=== PATIENT | female | born 1975 | race Caucasian/White ===

== ENCOUNTER 2018-10-05 07:12 | Inpatient (IN) | payer OTHER ==
[2018-10-05 08:24] LABS: Hemoglobin 16.1 g/dL (12.0-16.0); Mean Corpuscular HGB CONC 33.4 g/dL (32.0-36.0); Mean Corpuscular Hemoglobin 30.8 pg (27.0-31.0); Mean Corpuscular Volume 92.1 fL (78.0-98.0); Mean Platelet Volume 8.2 fL (7.4-10.4); Platelet Count 340 thou/uL (130-400); RBC Distribution Width 11.4 % (11.5-14.5); Red Blood Cell (RBC) Count 5.24 mill/uL (4.20-5.40); White Blood Cell (WBC) Count 20.6 thou/uL (4.8-10.8)
[2018-10-05 08:29] LABS: Bilirubin Negative (Negative); Blood, Urine Moderate (Negative); Clarity TURBID (Clear); Glucose, Urine (Dipstick) Negative (Negative); Leukocyte Large (Negative); Nitrite Positive (Negative); Protein, Urine (Dipstick) 30 mg/dL (Neg-Trace); Specific Gravity, Urine 1.012 (1.002-1.036); Urobilinogen 0.2 mg/dL (0.2-1.0); pH, Urine 7.5 (5.0-9.0)
[2018-10-05 08:30] LABS: Bacteria/HPF 4+ HPF (None Seen); RBC/HPF 21-50 HPF (0-3); Squamous Epithelial 0-3 HPF (0-3)
[2018-10-05 08:37] LABS: Pathc Cast-AUWi Flag 3.19 (0-2.49)
[2018-10-05 08:40] LABS: Band 12 % (5-11); Lymphocytes 5 % (21-51); MDiff Complete? YES; Monocytes 1 % (0-10); Neutrophil 79 % (42-75); RBC Morphology Normal; Reactive Lymphocytes 2 % (0-10)
[2018-10-05] MEDS ORDERED: Morphine 4 MG/ML VIAL ONE ×2 (08:42→12:16)
[2018-10-05] MEDS ORDERED: Ondansetron PF 4 MG/2 ML Vial ONE ×3 (08:42→16:39)
[2018-10-05 08:46] LABS: Hyaline Casts/LPF 0-3 HYALINE CAST LPF (0-3 Hyaline); Manual Microscopic Reviewed? No Path Casts Seen
[2018-10-05 08:50] LABS: ALT (SGPT) 23 U/L (8-55); AST (SGOT) 20 U/L (5-34); Albumin 4.7 g/dL (3.5-5.0); Alkaline Phosphatase 44 U/L (40-150); Anion Gap 13 mmol/L (10-20); BUN (Urea Nitrogen) 17 mg/dL (7.0-18.7); Bilirubin, Total 0.7 mg/dL (0.2-1.2); Calc. Creatinine Clearance 0 mL/min (70-130); Calcium 10.1 mg/dL (7.8-10.44); Carbon Dioxide 25 mmol/L (22-29); Chloride 105 mmol/L (98-107); Estimated GFR-MDRD 87; Globulin 3.6 g/dL (2.4-3.5); Glucose 132 mg/dL (70-105); Lipase 22 U/L (8-78); Potassium 3.8 mmol/L (3.5-5.1); Protein, Total 8.3 g/dL (6.0-8.3); Sodium 139 mmol/L (136-145)
--- NOTE | 2018-10-05 10:09 | CT ---
CT ABDOMEN WITH CONTRAST CT PELVIS WITH CONTRAST: DATE: 10/05/2018 TIME: 9:25 a.m. HISTORY: A 43-year-old female with abdominal pain, nausea, and emesis. The high-grade small bowel obstruction was discussed by Dr. Cordova, by telephone, with Dr. Montgomery of the emergency department at 9:43 a.m. on 10/05/2018. COMPARISON: None available. TECHNIQUE: IV injection of iodinated contrast media: Isovue-370 100 mL. Oral contrast media: Isovue p.o. FINDINGS: The lung bases are clear. No pneumoperitoneum or ascites. Normal liver, abdominal aorta, pancreas, and adrenals. Surgical absence of the uterus, urinary bladder, and rectum (and presumably ovaries). There is a left lower quadrant ostomy at the anterolateral abdominal wall, into which the descending colon enters. The adjacent portion of the descending colon is collapsed. There is no significant di lation of the rest of the colon. However, a loop of small intestine also herniates into this ostomy. The afferent limb and all small bowel loops proximal to it are severely dilated, typical caliber of 4 cm. The efferent limb of this herniated small bowel loop, at the colostomy site, is collapsed, as are all the small bowel loops dis mona to it. Due to the absence of intrapelvic structures, the cecum has herniated deep into the pelvic cavity. T he appendix is not identified with certainty. There are several surgical clips around the left inter nal/external iliac vessel bifurcation. No destructive osseous lesion. There are multiple moderate-sized and large parenchymal defects throughout the right renal upper, mid , and lower poles, representing multiple scars from previous insults. There is mild compensatory hyp ertrophy of the contralateral left kidney. The left renal parenchyma is intact. The bilateral renal collecting systems are mildly dilated. There is moderate dilation of the right ureter. No signific ant dilation of the left ureter. The ureters are presumably anastomosed to an ileal loop pouch, conn ected to a contralateral right-sided ostomy. IMPRESSION: 1. High-grade small bowel obstruction. This is due to obstruction of herniation of a loop of small intestine into the left lower quadrant colostomy site. 2. Status post total pelvic exenteration. 3. Status post urinary diversion surgery, with an ileal pouch emptying into a right lower quadrant o stomy. 4. Severe scarring and severe parenchymal volume loss of the right kidney due to multiple prior insu lts (such as prior infarctions and/or prior infections). CODE CR JN R POS: TIRSO
[2018-10-05] MEDS ORDERED: cefTRIAXone\\ROCEPHIN 1 GM VIAL ONE (10:13)
[2018-10-05] MEDS ORDERED: Lidocaine 2% Jelly 5 ML TUBE ONE (10:13)
[2018-10-05] MEDS ORDERED: Benzocaine 20% Spray 60 ML CAN ONE (10:13)
[2018-10-05] MEDS ORDERED: Iopamidol 370 76% 50 ML VIAL FS ONE (10:38)
[2018-10-05] MEDS ORDERED: ISOVUE-370 76%-LOCM 1 ML ONE (10:38)
--- NOTE | 2018-10-05 11:04 | HP ---
CHIEF COMPLAINT: Obstruction. 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 She has urostomy and an end colostomy from that. She has undergone a few additional procedures for abdominal wall reconstruction as well as vagina reconstruction. Since then, she has had right-sided muscle flap down for vaginal reconstruction. She now presents with pain, less ostomy output overnight associated with emesis. She is found on CT to have what looks like a strangulated hernia at her colostomy site. MEDICAL HISTORY: Otherwise, she denies. SURGICAL HISTORY: As above. Breast implants. MEDICATIONS: Medicines, none. ALLERGIES: NO KNOWN DRUG ALLERGIES. SOCIAL HISTORY: She is currently incarcerated. No alcohol, smoking, or other drugs. REVIEW OF SYSTEMS: Otherwise negative as described above. PHYSICAL EXAMINATION: VITAL SIGNS: She is afebrile. Her vital signs are stable. CHEST: Clear. HEART: Regular rate and rhythm. ABDOMEN: Soft. It is diffuse, mildly tender, more tender in the area of the colostomy site. No stool in her bag. She has clear urine in her ostomy. ASSESSMENT: Strangulated parastomal hernia. PLAN: To operating room for repair. She has been told she had this, but it was non-obstructing in the past. This was a prior admission in [place] for bowel obstruction. She understands risks and benefits of surgery including bleeding, infection, scarring, enterocutaneous fistula, need for further operation, and potential for hernia recurrence. Job ID: [id number]
[2018-10-05] MEDS ORDERED: Midazolam HCl 2 mg/2 ml Vial ONE (11:59)
[2018-10-05] MEDS ORDERED: Bupivacaine/Epinephrine 0.25% 30 ML VIAL ONE (12:05)
[2018-10-05] MEDS ORDERED: Sodium Chloride 0.9% 10 ML ONE ×2 (12:08→12:09)
[2018-10-05] MEDS ORDERED: Fentanyl 250 MCG/5 ML VIAL ONE (12:16)
[2018-10-05] MEDS ORDERED: Fentanyl 100 MCG/2 ML VIAL ONE ×4 (14:30→15:54)
[2018-10-05] MEDS ORDERED: Promethazine HCl 25 MG/ML VIAL IM PRN ×3 (15:22→16:15)
[2018-10-05] MEDS ORDERED: diphenhydrAMINE 50 MG/ML VIAL IVP PRN (15:22)
[2018-10-05] MEDS ORDERED: Ondansetron PF 4 MG/2 ML Vial IVP PRN ×2 (15:22→16:15)
[2018-10-05] MEDS ORDERED: Promethazine HCl 25 MG/ML VIAL SLOW IVP PRN (15:22)
[2018-10-05] MEDS ORDERED: diphenhydrAMINE 50 MG/ML VIAL IM PRN (15:22)
[2018-10-05] MEDS ORDERED: Naloxone HCl 0.4 mg/ml Vial IV PRN (15:22)
[2018-10-05] MEDS ORDERED: Ondansetron HCl/PF 4 MG/2 ML Vial IVP PRN (15:22)
[2018-10-05] MEDS ORDERED: diphenhydrAMINE 25 MG CAP PO PRN (15:22)
[2018-10-05] MEDS ORDERED: Communication Order-Pharmacy FS SCH (15:30)
[2018-10-05] MEDS ORDERED: hydrALAZINE 20 MG/ML VIAL SLOW IVP PRN (16:15)
[2018-10-05] MEDS ORDERED: Glycopyrrolate 0.2 MG/ML 5 ML SYRINGE ONE (16:39)
[2018-10-05] MEDS ORDERED: Succinylcholine Chloride 20 MG/ML 10 ml SYRINGE FS ONE (16:39)
[2018-10-05] MEDS ORDERED: PROPOFOL 200 MG/20 ML VIAL ONE (16:39)
[2018-10-05] MEDS ORDERED: Lidocaine 1% PF 5 ML VIAL ONE (16:39)
[2018-10-05] MEDS ORDERED: Ketorolac Tromethamine 30 MG/ML VIAL ONE (16:39)
[2018-10-05] MEDS ORDERED: Dexamethasone 20 MG/5 ML VIAL ONE (16:39)
[2018-10-05] MEDS ORDERED: Acetaminophen 1,000 MG in Premix Bag 1 BAG IVPB SCH (18:00)
[2018-10-05] MEDS ORDERED: Ketorolac Tromethamine 30 MG/ML VIAL IVP SCH (18:00)
[2018-10-05] MEDS: D5 1/2 NS w/20 mEq KCL 1,000 ML IV SCH (18:03)
--- NOTE | 2018-10-05 18:12 | OP ---
DATE OF PROCEDURE: 10/05/2018 PREOPERATIVE DIAGNOSIS: Strangulated parastomal hernia. POSTOPERATIVE DIAGNOSIS: Strangulated parastomal hernia. PROCEDURES PERFORMED: 1. Exploratory laparotomy. 2. Parastomal hernia repair by re-doing the colostomy. 3. Small-bowel resection anastomosis. 4. Extensive lysis of adhesions. ANESTHESIA: General. ESTIMATED BLOOD LOSS: 200 mL. COMPLICATIONS: None. FINDINGS: Significant intraabdominal adhesions with ischemic changes to the intestine in the hernia. DESCRIPTION OF PROCEDURE: The patient was taken to the operating room and laid supine on the operating room table after general anesthetic was obtained. Cisneros was placed in the urostomy and balloon inflated. The Cisneros was laid off the side of the patient. Colostomy and urostomy bags are removed. The abdomen is prepped and draped in a sterile fashion. Tegaderms were placed over each ostomy site. Left subcostal 5 mm Optiview trocar placed without injury and high-flow pneumoperitoneum was obtained. There were just too many intraabdominal adhesions to proceed laparoscopic, decision was made open, midline incision was made very carefully avoiding intraabdominal structures. Multiple small bowel and colon adhesions were taken down. The small bowel can be seen going down toward the parastomal hernia and with significant dilation the area of the parastomal hernia the small intestine had ischemic changes. The colon is decompressed. The small intestine is fused to the hernia sac in the hernia way up towards the skin and taking this down, enterotomy is made. OLVIN-75 stapler is fired proximally and distally across the area of intestine going up into the hernia and dissecting the small bowel out of the parastomal hernia. Because the small bowel was fused to the side of the colon, a small colotomy was made, so the decision is made to redo the whole colostomy. The colostomy mucosa is ellipsed out from the skin and the colostomy is all taken back down into the abdominal cavity. The area with the hole is stapled off and removed. The splenic flexure then had to be mobilized in order to facilitate no tension on the new colostomy. The end colostomy is able to brought up through the muscle under no tension, held in place using a Pyrites. A [id number] anastomosis is performed using the two ends of small intestine using OLVIN-75 stapler. The common enterotomy was closed using stapler. A crotch stitch in the staple line was oversewn using silk sutures. The mesenteric defect was closed using silk sutures. There was no bleeding in the abdomen. All instrument counts, needle counts, and lap counts were correct. PDS was used to close the fascial defect from the top and the bottom, tied in the middle. Subcutaneous tissues were irrigated and closed using skin clips. Telfa hermelinda were placed in between some of the frannie secondary to the contaminated nature of the procedure. The colostomy is then matured in the usual fashion using 3-0 Vicryl. Colostomy and urostomy devices were placed. The patient was then returned to Recovery in stable condition. All instrument counts, needle counts, and lap counts are correct. Job ID: [id number]
[2018-10-05 18:34] VITALS: BMI 27.8
[2018-10-05] MEDS: Famotidine/PF 20 mg/2ml Vial SLOW IVP SCH (19:33)
[2018-10-05] MEDS: Acetaminophen 1,000 MG in Premix Bag 1 BAG IVPB SCH (19:33)
[2018-10-05] MEDS: Famotidine 20 MG TAB PO SCH (19:34)
[2018-10-05] MEDS: cefOXitin Sodium/Dextrose,Iso 2 GM in Premix Bag 1 BAG IVPB SCH (21:06)
[2018-10-06] MEDS: Acetaminophen 1,000 MG in Premix Bag 1 BAG IVPB SCH ×3 (02:00→15:06)
[2018-10-06] MEDS: D5 1/2 NS w/20 mEq KCL 1,000 ML IV SCH ×3 (02:00→15:05)
[2018-10-06] MEDS: cefOXitin Sodium/Dextrose,Iso 2 GM in Premix Bag 1 BAG IVPB SCH (05:17)
[2018-10-06 07:01] LABS: Anion Gap 10 mmol/L (10-20); BUN (Urea Nitrogen) 14 mg/dL (7.0-18.7); Calc. Creatinine Clearance 66 mL/min (70-130); Calcium 7.5 mg/dL (7.8-10.44); Carbon Dioxide 23 mmol/L (22-29); Chloride 108 mmol/L (98-107); Estimated GFR-MDRD 47; Glucose 156 mg/dL (70-105); Potassium 4.3 mmol/L (3.5-5.1); Sodium 137 mmol/L (136-145)
[2018-10-06] MEDS: Famotidine/PF 20 mg/2ml Vial SLOW IVP SCH ×2 (08:21→21:01)
[2018-10-06] MEDS: Famotidine 20 MG TAB PO SCH ×2 (08:22→21:00)
[2018-10-06 08:24] LABS: #Lymphocytes 0.9 thou/uL (1.20-3.40); #Monocytes 0.7 thou/uL (0.11-0.59); #Neutrophils 11.1 thou/uL (1.40-6.50); %Basophils 0.1 % (0.0-1.0); %Eosinophils 0.2 % (0.0-10.0); %Lymphocytes 7.3 % (21.0-51.0); %Monocytes 5.5 % (0.0-10.0); Band 24 % (5-11); Hemoglobin 12.3 g/dL (12.0-16.0); Lymphocytes 5 % (21-51); MDiff Complete? YES; Mean Corpuscular HGB CONC 32.1 g/dL (32.0-36.0); Mean Corpuscular Hemoglobin 30.6 pg (27.0-31.0); Mean Corpuscular Volume 95.2 fL (78.0-98.0); Mean Platelet Volume 8.4 fL (7.4-10.4); Monocytes 2 % (0-10); Neutrophil 65 % (42-75); Platelet Count 233 thou/uL (130-400); RBC Distribution Width 11.6 % (11.5-14.5); Reactive Lymphocytes 4 % (0-10); White Blood Cell (WBC) Count 12.8 thou/uL (4.8-10.8)
--- NOTE | 2018-10-06 10:15 | PRG ---
DATE OF SERVICE: 10/06/2018 SUBJECTIVE: Postop day #1, revision colostomy and parastomal hernia repair. Ms. Thornton's pain is moderate to significant. She is on a [employer]. She denies nausea. She has not ambulated yet. She is afebrile. Vital signs are stable. Her abdomen is soft. Her midline dressings are intact. Her colostomy mucosa is pink. She has good urine in her urostomy bag. White blood cell count is 12, hemoglobin is 12. Sodium 137, creatinine 1.24. ASSESSMENT: Postop day #1 revision colostomy and parastomal hernia repair necessitating small-bowel resection. PLAN: Discontinue NG. Continue just ice chips today. Hopefully, start advancing diet tomorrow. Encouraged ambulation. Job ID: [id number]
[2018-10-06] MEDS: fentaNYL Citrate/PF 2,000 MCG in Sodium Chloride 0.9% 60 ML IV PRN (17:15)
[2018-10-07] MEDS: Ketorolac Tromethamine 30 MG/ML VIAL IVP PRN (00:25)
[2018-10-07] MEDS: D5 1/2 NS w/20 mEq KCL 1,000 ML IV SCH ×3 (02:15→11:14)
[2018-10-07 06:07] LABS: #Eosinphils 0.4 thou/uL (0.0-0.7); #Monocytes 0.8 thou/uL (0.11-0.59); #Neutrophils 10.9 thou/uL (1.40-6.50); %Basophils 0.3 % (0.0-1.0); %Eosinophils 2.8 % (0.0-10.0); %Lymphocytes 7.4 % (21.0-51.0); %Neutrophils 83.5 % (42.0-75.0); Hemoglobin 10.9 g/dL (12.0-16.0); Mean Corpuscular HGB CONC 32.9 g/dL (32.0-36.0); Mean Corpuscular Hemoglobin 31.7 pg (27.0-31.0); Mean Corpuscular Volume 96.4 fL (78.0-98.0); Mean Platelet Volume 8.4 fL (7.4-10.4); Platelet Count 203 thou/uL (130-400); RBC Distribution Width 11.5 % (11.5-14.5); Red Blood Cell (RBC) Count 3.44 mill/uL (4.20-5.40); White Blood Cell (WBC) Count 13.1 thou/uL (4.8-10.8)
[2018-10-07 06:31] LABS: Anion Gap 7 mmol/L (10-20); BUN (Urea Nitrogen) 11 mg/dL (7.0-18.7); Calc. Creatinine Clearance 119 mL/min (70-130); Calcium 7.6 mg/dL (7.8-10.44); Carbon Dioxide 23 mmol/L (22-29); Chloride 110 mmol/L (98-107); Estimated GFR-MDRD Greater than 90; Glucose 116 mg/dL (70-105); Potassium 4.2 mmol/L (3.5-5.1)
[2018-10-07 06:44] LABS: Sodium 136 mmol/L (136-145)
[2018-10-07] MEDS: Famotidine/PF 20 mg/2ml Vial SLOW IVP SCH ×2 (08:25→20:24)
[2018-10-07] MEDS: fentaNYL Citrate/PF 2,000 MCG in Sodium Chloride 0.9% 60 ML IV PRN ×2 (08:28→17:19)
[2018-10-07] MEDS: Famotidine 20 MG TAB PO SCH ×2 (09:31→20:24)
--- NOTE | 2018-10-07 13:27 | PRG ---
DATE OF SERVICE: 10/07/2018 SUBJECTIVE: Ms. Thornton is doing well. She denies nausea. No bowel function yet. PHYSICAL EXAMINATION: VITAL SIGNS: She is afebrile. Vital signs are stable. ABDOMEN: Soft. She has occasional bowel sounds. Midline wound dressings are changed and her hermelinda are removed and sterile dressing was placed. She has clear urine. No air in her bag, although she feels some air, passing some gas. ASSESSMENT: Postoperative day 2, parastomal hernia that strangulated repair necessitating small bowel resection and revision of colostomy. PLAN: Start clear liquid diet today. Hopefully, advance over the weekend. She has a high risk for infection wound and she had significant dilation of her intestine, so I would advance her diet slowly. Dr. Mancia is covering for me this weekend. Job ID: [id number]
[2018-10-08] MEDS: D5 1/2 NS w/20 mEq KCL 1,000 ML IV SCH ×2 (00:04→07:54)
[2018-10-08 06:25] LABS: #Eosinphils 0.3 thou/uL (0.0-0.7); #Monocytes 1.2 thou/uL (0.11-0.59); #Neutrophils 10.8 thou/uL (1.40-6.50); %Basophils 0.2 % (0.0-1.0); %Eosinophils 2.3 % (0.0-10.0); %Lymphocytes 7.8 % (21.0-51.0); %Monocytes 8.8 % (0.0-10.0); %Neutrophils 80.9 % (42.0-75.0); Hemoglobin 10.4 g/dL (12.0-16.0); Mean Corpuscular HGB CONC 33.6 g/dL (32.0-36.0); Mean Corpuscular Volume 95.1 fL (78.0-98.0); Mean Platelet Volume 8.6 fL (7.4-10.4); Platelet Count 206 thou/uL (130-400); RBC Distribution Width 11.2 % (11.5-14.5); Red Blood Cell (RBC) Count 3.24 mill/uL (4.20-5.40); White Blood Cell (WBC) Count 13.4 thou/uL (4.8-10.8)
[2018-10-08] MEDS: fentaNYL Citrate/PF 2,000 MCG in Sodium Chloride 0.9% 60 ML IV PRN ×2 (06:35→18:25)
[2018-10-08 06:44] LABS: Anion Gap 10 mmol/L (10-20); BUN (Urea Nitrogen) 5 mg/dL (7.0-18.7); Calc. Creatinine Clearance 137 mL/min (70-130); Calcium 8.4 mg/dL (7.8-10.44); Carbon Dioxide 21 mmol/L (22-29); Chloride 107 mmol/L (98-107); Estimated GFR-MDRD Greater than 90; Glucose 96 mg/dL (70-105); Potassium 4.1 mmol/L (3.5-5.1); Sodium 134 mmol/L (136-145)
[2018-10-08] MEDS: Famotidine/PF 20 mg/2ml Vial SLOW IVP SCH ×2 (07:52→20:19)
[2018-10-08] MEDS: Famotidine 20 MG TAB PO SCH ×2 (07:53→20:20)
[2018-10-08] MEDS: Ketorolac Tromethamine 30 MG/ML VIAL IVP PRN (07:53)
--- NOTE | 2018-10-08 13:31 | PRG ---
DATE OF SERVICE: 10/08/2018 SUBJECTIVE: Elma Thornton is doing well today. She did have a fever to 102.2 degrees. Currently, her temperature is 98 degrees. She has been ambulating. She feels her abdomen is slightly distended. PHYSICAL EXAMINATION: VITAL SIGNS: Heart rate 101 and blood pressure 137/91. LUNGS: Clear to auscultation. CARDIAC: Regular rate and rhythm without murmur or gallop. ABDOMEN: Soft, slightly tympanitic, slightly distended. No stool in her colostomy. Urine output is good through her urostomy bag. LABORATORY DATA: This morning, her white count is 13,000, unchanged from yesterday. Hemoglobin 10.4. Basic metabolic profile unremarkable. ASSESSMENT AND PLAN: Postoperative. Continue clear liquids, do not advance. Continue IV fluids until she tolerates her diet better. Continue use of antibiotics. Encourage ambulation. Job ID: [id number]
[2018-10-08] MEDS ORDERED: Acetaminophen 500 MG TAB PO PRN (19:50)
[2018-10-08] MEDS ORDERED: Ketorolac Tromethamine 30 MG/ML VIAL IVP PRN (19:50)
[2018-10-08] MEDS: Acetaminophen 1,000 MG in Premix Bag 1 BAG IVPB PRN (20:20)
[2018-10-09] MEDS: D5 1/2 NS w/20 mEq KCL 1,000 ML IV SCH ×2 (05:23→17:36)
[2018-10-09] MEDS: fentaNYL Citrate/PF 2,000 MCG in Sodium Chloride 0.9% 60 ML IV PRN ×2 (08:41→21:16)
[2018-10-09] MEDS: Famotidine/PF 20 mg/2ml Vial SLOW IVP SCH ×2 (08:41→20:06)
[2018-10-09] MEDS: Famotidine 20 MG TAB PO SCH ×2 (10:56→20:10)
[2018-10-09] MEDS: Acetaminophen 1,000 MG in Premix Bag 1 BAG IVPB PRN (11:20)
--- NOTE | 2018-10-09 17:37 | PRG ---
DATE OF SERVICE: SUBJECTIVE: Elma Thornton is doing well today. She is complaining of some bloating, but no nausea or vomiting. She is tolerating her liquids. She has not had any flatus or stool out of her colostomy bag. OBJECTIVE: VITAL SIGNS: Temperature 98.5 degrees, pulse 89, respirations 20, and blood pressure 105/65. She has not had a fever since 7 yesterday morning. LUNGS: Clear to auscultation. CARDIAC: Regular rate and rhythm without murmur or gallop. ABDOMEN: Soft. Bowel sounds present. Mild tympany. EXTREMITIES: Unremarkable. LABORATORY DATA: No laboratories today. ASSESSMENT AND PLAN: Continue liquids. Await better bowel function. We will check her laboratories tomorrow. Her fever seemed to have resolved. Await colostomy function. Job ID: [id number]
[2018-10-09] MEDS ORDERED: Acetaminophen 1,000 MG in Premix Bag 1 BAG IVPB PRN (23:39)
[2018-10-10] MEDS: D5 1/2 NS w/20 mEq KCL 1,000 ML IV SCH (01:05)
[2018-10-10 06:09] LABS: Band 3 % (5-11); Eosinophils 6 % (0-10); Hemoglobin 10.9 g/dL (12.0-16.0); Lymphocytes 18 % (21-51); MDiff Complete? YES; Mean Corpuscular HGB CONC 33.7 g/dL (32.0-36.0); Mean Corpuscular Hemoglobin 32.2 pg (27.0-31.0); Mean Corpuscular Volume 95.5 fL (78.0-98.0); Mean Platelet Volume 7.7 fL (7.4-10.4); Monocytes 14 % (0-10); Neutrophil 59 % (42-75); Platelet Count 259 thou/uL (130-400); RBC Distribution Width 11.4 % (11.5-14.5); Red Blood Cell (RBC) Count 3.39 mill/uL (4.20-5.40); White Blood Cell (WBC) Count 9.6 thou/uL (4.8-10.8)
[2018-10-10 06:12] LABS: Anion Gap 12 mmol/L (10-20); BUN (Urea Nitrogen) 4 mg/dL (7.0-18.7); Calc. Creatinine Clearance 135 mL/min (70-130); Calcium 8.9 mg/dL (7.8-10.44); Carbon Dioxide 21 mmol/L (22-29); Chloride 109 mmol/L (98-107); Estimated GFR-MDRD Greater than 90; Glucose 96 mg/dL (70-105); Sodium 137 mmol/L (136-145)
[2018-10-10] MEDS: Famotidine 20 MG TAB PO SCH ×2 (08:02→19:24)
[2018-10-10] MEDS: Famotidine/PF 20 mg/2ml Vial SLOW IVP SCH ×2 (08:02→20:11)
[2018-10-10] MEDS: fentaNYL Citrate/PF 2,000 MCG in Sodium Chloride 0.9% 60 ML IV PRN (10:25)
[2018-10-10] MEDS ORDERED: Fentanyl 100 MCG/2 ML VIAL SLOW IVP PRN (11:53)
[2018-10-10] MEDS ORDERED: Milk Of Magnesia 30 ML UDCUP PO SCH (12:00)
[2018-10-10] MEDS: HYDROcodone/Acetaminophen 10/325 mg Tablet PO PRN ×2 (17:06→21:03)
[2018-10-11] MEDS: HYDROcodone/Acetaminophen 10/325 mg Tablet PO PRN ×6 (01:32→23:06)
[2018-10-11] MEDS: traMADol HCl 50 MG TAB PO PRN (07:06)
[2018-10-11] MEDS: Famotidine 20 MG TAB PO SCH ×2 (08:03→19:37)
[2018-10-11] MEDS: Famotidine/PF 20 mg/2ml Vial SLOW IVP SCH ×2 (08:05→21:09)
[2018-10-11] MEDS ORDERED: Polyethylene Glycol 3350 17 GM Packet PO SCH ×2 (11:00)
--- NOTE | 2018-10-11 15:19 | PRG ---
DATE OF SERVICE: 10/11/2018 SUBJECTIVE: Ms. Thornton is doing well. She tolerated the full liquid. She is concerned about her colostomy color. OBJECTIVE: VITAL SIGNS: She is afebrile. Vital signs are stable. ABDOMEN: Soft. She has active bowel sounds. Minimal stool in her bag. She showed me urostomy. She has slight pulling away at the edges where the Vicryls are, but no obvious necrosis of the mucosa. Her abdomen is red in mid region. Probe of the previous performed at the bedside and new dressings were placed. ASSESSMENT: Postoperative strangulated parastomal hernia repair with small-bowel resection and redo of colostomy. PLAN: We will probe this wound daily to prevent wound infection. Place her on Levaquin for skin coverage. Let her do GI soft diet this evening and she is already on MiraLax to help with increased stool output. Likely be able to be discharged in next few days. Job ID: [id number]
[2018-10-11] MEDS: Zolpidem Tartrate 5 MG TAB PO PRN (19:40)
--- NOTE | 2018-10-11 22:26 | EKG ---
Test Reason : Blood Pressure : / mmHG Vent. Rate : 119 BPM Atrial Rate : 119 BPM P-R Int : 120 ms QRS Dur : 072 ms QT Int : 294 ms P-R-T Axes : 049 060 064 degrees QTc Int : 413 ms Sinus tachycardia Possible Left atrial enlargement Low voltage QRS Borderline ECG No previous ECGs available Confirmed by Rachel DAMIAN ([id number]) on 10/11/2018 10:26:25 PM Referred By: CULLEN Confirmed By:Rachel DAMIAN
[2018-10-12] MEDS: traMADol HCl 50 MG TAB PO PRN ×5 (03:38→22:07)
[2018-10-12] MEDS: HYDROcodone/Acetaminophen 10/325 mg Tablet PO PRN ×4 (07:34→19:48)
[2018-10-12] MEDS: Famotidine 20 MG TAB PO SCH ×2 (08:27→19:48)
[2018-10-12] MEDS: Polyethylene Glycol 3350 17 GM Packet PO SCH (08:27)
[2018-10-12] MEDS: Famotidine/PF 20 mg/2ml Vial SLOW IVP SCH ×2 (08:33→22:10)
[2018-10-12] MEDS ORDERED: Milk Of Magnesia 30 ML UDCUP PO SCH (14:15)
--- NOTE | 2018-10-12 14:26 | PRG ---
DATE OF SERVICE: 10/12/2018 SUBJECTIVE: Postop strangulated parastomal hernia repair with small-bowel resection. Ms. Thornton is doing well. She is tolerating soft diet. She is ambulatory. Her pain is controlled. PHYSICAL EXAMINATION: VITAL SIGNS: Blood pressure 115/75, pulse 83. She is afebrile. ABDOMEN: Soft, minimally distended. There is air, but no stool in her bag. Dressings are changed and the wick sites are probed to reveal no significant purulence today. ASSESSMENT AND PLAN: Add milk of magnesium again to help her have more stool output. She had a lot of hard stool in her colon before. Likely home within next few days. Job ID: [id number]
[2018-10-12] MEDS: Zolpidem Tartrate 5 MG TAB PO PRN (19:49)
[2018-10-13] MEDS: HYDROcodone/Acetaminophen 10/325 mg Tablet PO PRN ×5 (00:01→20:06)
[2018-10-13] MEDS: traMADol HCl 50 MG TAB PO PRN ×2 (02:21→08:41)
[2018-10-13] MEDS: Famotidine 20 MG TAB PO SCH ×2 (08:36→20:13)
[2018-10-13] MEDS: Polyethylene Glycol 3350 17 GM Packet PO SCH (08:36)
[2018-10-13] MEDS: Famotidine/PF 20 mg/2ml Vial SLOW IVP SCH ×2 (08:42→20:04)
[2018-10-13] MEDS ORDERED: Milk Of Magnesia 30 ML UDCUP PO SCH (09:15)
--- NOTE | 2018-10-13 14:25 | PRG ---
DATE OF SERVICE: 10/13/2018 SUBJECTIVE: Ms. Thornton is doing well, still has not had much ostomy output, but she denies nausea, vomiting, or bloating. She was passing some air into her bag. OBJECTIVE: GENERAL: She is afebrile. Her wound has less erythema. There is minimal purulence at the old wick sites. ASSESSMENT: Status post parastomal hernia repair. PLAN: Re-dose milk of magnesium. Likely home in the next few days, if more ostomy output. Job ID: [id number]
[2018-10-13] MEDS: Zolpidem Tartrate 5 MG TAB PO PRN (20:05)
[2018-10-14] MEDS: HYDROcodone/Acetaminophen 10/325 mg Tablet PO PRN ×3 (00:18→11:33)
[2018-10-14] MEDS: Famotidine 20 MG TAB PO SCH (07:47)
[2018-10-14] MEDS: Polyethylene Glycol 3350 17 GM Packet PO SCH (07:49)
[2018-10-14 08:13] VITALS: BP 113/72; TEMP 98.7
--- NOTE | 2018-10-14 10:29 | DIS ---
DATE OF ADMISSION: 10/05/2018 DATE OF DISCHARGE: 10/14/2018 ADMITTING DIAGNOSIS: Strangulated incarcerated parastomal hernia. DISCHARGE DIAGNOSIS: Strangulated incarcerated parastomal hernia. PROCEDURES: Parastomal hernia repair with small-bowel resection by Dr. Hurd without complication. CONDITION AT DISCHARGE: Improved. HOSPITAL COURSE: On postop, the patient had expected postop ileus that slowly resolved. She required some milk of magnesia due to some chronic constipation. Her pain was always controlled. She was ambulatory early. On the day of discharge, she is doing well. Her wound is healing well. She has had hermelinda on her wound and some persistent drainage that has resolved. She is being discharged to the [facility] home [facility] on Levaquin to be taken every day for 10 more days. I also recommended she do Tylenol and ibuprofen for pain, as well as MiraLax p.r.n. for constipation. She will follow up with me next week for staple removal. Job ID: [id number]
[2018-10-14] MEDS: Famotidine/PF 20 mg/2ml Vial SLOW IVP SCH (11:07)
== END 2018-10-14 11:47 | DRG 330 ==
LOC: EEVIPCON 07:12 → ERS 07:12 → SDC 10:27 → SURG A 10:59
PROVIDERS: ADMIT Surgery; ATTEND Surgery
PROC: 0WQF0ZZ Repair Abdominal Wall, Open Approach (ICD-10-PCS; principal; 2018-10-05)
PROC: 0DB80ZZ Excision of Small Intestine, Open Approach (ICD-10-PCS; 2018-10-05)
PROC: 0DNW0ZZ Release Peritoneum, Open Approach (ICD-10-PCS; 2018-10-05)
DX: K43.3 Parastomal hernia with obstruction, without gangrene (principal); K91.30 Postprocedural intestinal obstruction, unspecified as to partial versus complete; K66.0 Peritoneal adhesions (postprocedural) (postinfection)
CPT/HCPCS: 36415; 74177; 80048; 80053; 81003; 81015; 83605; 83690; 85025; 88307; 90471; 90686; 93005; 93010; 96361; 96365; 96375; G0008; J0131; J0696; J1100; J1885; J1956; J2001; J2250; J2270; J2405; J2704; J3010; J7050; S0028

== ENCOUNTER 2018-10-17 10:42 | Emergency (ER) | payer OTHER ==
[2018-10-17 11:36] LABS: #Basophils 0.1 thou/uL (0.0-0.2); #Eosinphils 0.2 thou/uL (0.0-0.7); #Lymphocytes 1.9 thou/uL (1.20-3.40); #Monocytes 0.8 thou/uL (0.11-0.59); #Neutrophils 7.4 thou/uL (1.40-6.50); %Basophils 0.5 % (0.0-1.0); %Eosinophils 2.3 % (0.0-10.0); %Lymphocytes 18.1 % (21.0-51.0); %Monocytes 7.8 % (0.0-10.0); %Neutrophils 71.4 % (42.0-75.0); Hemoglobin 11.1 g/dL (12.0-16.0); Mean Corpuscular HGB CONC 33.2 g/dL (32.0-36.0); Mean Corpuscular Hemoglobin 30.7 pg (27.0-31.0); Mean Corpuscular Volume 92.6 fL (78.0-98.0); Mean Platelet Volume 6.8 fL (7.4-10.4); Platelet Count 649 thou/uL (130-400); RBC Distribution Width 11.6 % (11.5-14.5); Red Blood Cell (RBC) Count 3.61 mill/uL (4.20-5.40); White Blood Cell (WBC) Count 10.3 thou/uL (4.8-10.8)
[2018-10-17 11:52] LABS: ALT (SGPT) 14 U/L (8-55); AST (SGOT) 16 U/L (5-34); Albumin 3.7 g/dL (3.5-5.0); Alkaline Phosphatase 48 U/L (40-150); Anion Gap 15 mmol/L (10-20); BUN (Urea Nitrogen) 16 mg/dL (7.0-18.7); Bilirubin, Total 0.3 mg/dL (0.2-1.2); Calc. Creatinine Clearance 0 mL/min (70-130); Calcium 9.5 mg/dL (7.8-10.44); Carbon Dioxide 20 mmol/L (22-29); Chloride 108 mmol/L (98-107); Estimated GFR-MDRD 82; Globulin 3.5 g/dL (2.4-3.5); Glucose 92 mg/dL (70-105); Potassium 3.9 mmol/L (3.5-5.1); Protein, Total 7.2 g/dL (6.0-8.3); Sodium 139 mmol/L (136-145)
[2018-10-17] MEDS ORDERED: Morphine 4 MG/ML VIAL ONE (12:09)
[2018-10-17] MEDS ORDERED: Ondansetron PF 4 MG/2 ML Vial ONE (12:09)
[2018-10-17 12:52] LABS: Bilirubin Negative (Negative); Blood, Urine Negative (Negative); Clarity CLEAR (Clear); Glucose, Urine (Dipstick) Negative (Negative); Leukocyte Negative (Negative); Nitrite Negative (Negative); Protein, Urine (Dipstick) 30 mg/dL (Neg-Trace); Specific Gravity, Urine 1.014 (1.002-1.036); Urobilinogen 0.2 mg/dL (0.2-1.0)
[2018-10-17 12:54] LABS: Bacteria/HPF None Seen HPF (None Seen); RBC/HPF None Seen HPF (0-3); Squamous Epithelial 21-50 HPF (0-3); Yeast-AUWi Flag 8.4 (0-25.0)
[2018-10-17 13:00] LABS: Pathc Cast-AUWi Flag 8.28 (0-2.49)
[2018-10-17 13:14] LABS: Hyaline Casts/LPF 0-3 HYALINE CAST LPF (0-3 Hyaline)
[2018-10-17 13:15] LABS: Renal Epithelial None Seen HPF (0-3); Transitional Epithelial NONE SEEN HPF (0-3)
--- NOTE | 2018-10-17 14:21 | CT ---
CT THORAX WITH CONTRAST CT ABDOMEN WITH CONTRAST CT PELVIS WITH CONTRAST: DATE: 10-17-18 TIME: 12:39 p.m. HISTORY: 43-year-old female status post revision of colostomy for treatment of small bowel obstruction at the site of the colostomy. Patient now presents with abdominal pain, nausea, infection and drainage from the incision. TECHNIQUE: IV iodinated contrast media: 100 ml of Isovue 370 Oral contrast media: Not administered Single phase scans of thorax, abdomen, and pelvis. COMPARISON: CT 10-05-18 FINDINGS: There are new midline skin frannie ventral to new midline ventral laparotomy incision, where there is gas in the subcutaneous tissues at the incision. The previously demonstrated fluid-filled dilated small bowel loops are no longer fluid-filled. Curren tly, there is a new air-distended loop of small intestine with thick pérez and a suture line, in the left lower quadrant of the abdominal cavity. This mural thickening extends a distance of several doze n centimeters superiorly and then to the right. No fluid filled dilated small bowel loops of intestin al obstruction are demonstrated. The colostomy site no longer has the entrapped small bowel loop. The luminal contents of the colon, including at the colostomy site in the left lower quadrant, are of hi gh density, probably representing residual enteric contrast material from the CT of 10-05-18. There is fat stranding and edema at the left lower quadrant colostomy site consistent with recent surgical in tervention there. It is not possible to rule in or rule out superimposed infection (cellulitis) in th at location this soon after surgery. Furthermore, there is extensive fat stranding representing edema in the mesentery in the left lower quadrant of the peritoneal cavity. Furthermore, there is an appro ximately 4 x 4.5 x 1.5 cm loculated fluid collection in the ventral aspect of the left lower quadrant perioneal cavity, broadly abutting the ventral peritoneal surface, with mildly thick pérez (axial im age 62 or 99, series 2; coronal image 40 of 129, series 601). This fluid collection could either repr esent a post-surgical hematoma/seroma or abscess. Fluid-filled ileal pouch is demonstrated at midline and left of midline in the pelvic cavity. It comm unicates with another ostomy in the contralateral right lower quadrant anterior abdominal wall. The gallbladder is now significantly distended. There is at least one small subcentimeter calcified g allstone. No signs of mural thickening or pericholecystic edema. No pneumoperitoneum. Lung bases are clear. Other findings as previously described. Normal left kidney. Severe scarring and volume loss of right kidney. IMPRESSION: 1. Status post revision/repair of colostomy at left lower quadrant, with interval resolution of the s mall bowel obstruction. 2. Loculated intraperitoneal fluid collection in the left lower quadrant broadly abutting the ventral peritoneual surface. Differential diagnosis is post-surgical hematoma/seroma vs. abscess. 3. Edema at the colostomy site, nonspecific. 4. Edema of the mesentery in the left lower lobe quadrant and centrally. This is nonspecific, and cou ld reflect recent post-operative changes. 5. Mural thickening of air-filled post surgical small bowel loop, especially at the left lower quadra nt. This is nonspecific. 6. Distended gallbladder and cholelithiasis. 7. Old status post total pelvic exenteration. 8. Old status post urinary diversion surgery with ileal pouch emptying into right lower quadrant osto my. 9. Severe scarring and severe parenchymal volume loss of the right kidney due to multiple prior insul ts (such as prior infections and/or prior infarctions). JN R POS: TPC
== END 2018-10-17 15:04 ==
LOC: ERS 10:42
DX: T81.49XA Infection following a procedure, other surgical site, initial encounter (principal); R10.9 Unspecified abdominal pain; Z79.899 Other long term (current) drug therapy
CPT/HCPCS: 36415; 74177; 80053; 81003; 81015; 85025; 96361; 96374; 96375; J2270; J2405

== ENCOUNTER 2018-10-26 12:59 | Observation (INO) | payer OTHER ==
[2018-10-26 13:59] LABS: #Eosinphils 0.2 thou/uL (0.0-0.7); #Monocytes 0.7 thou/uL (0.11-0.59); #Neutrophils 4.9 thou/uL (1.40-6.50); %Basophils 0.3 % (0.0-1.0); %Lymphocytes 25.2 % (21.0-51.0); %Monocytes 8.8 % (0.0-10.0); %Neutrophils 62.7 % (42.0-75.0); Hemoglobin 12.5 g/dL (12.0-16.0); Mean Corpuscular HGB CONC 33.8 g/dL (32.0-36.0); Mean Corpuscular Hemoglobin 30.7 pg (27.0-31.0); Mean Corpuscular Volume 91.1 fL (78.0-98.0); Mean Platelet Volume 6.9 fL (7.4-10.4); Platelet Count 501 thou/uL (130-400); RBC Distribution Width 12.3 % (11.5-14.5); Red Blood Cell (RBC) Count 4.06 mill/uL (4.20-5.40); White Blood Cell (WBC) Count 7.8 thou/uL (4.8-10.8)
[2018-10-26 14:24] LABS: ALT (SGPT) 19 U/L (8-55); AST (SGOT) 27 U/L (5-34); Alkaline Phosphatase 34 U/L (40-150); Anion Gap 13 mmol/L (10-20); BUN (Urea Nitrogen) 11 mg/dL (7.0-18.7); Bilirubin, Total 0.4 mg/dL (0.2-1.2); Calc. Creatinine Clearance 0 mL/min (70-130); Calcium 9.1 mg/dL (7.8-10.44); Carbon Dioxide 16 mmol/L (22-29); Chloride 114 mmol/L (98-107); Estimated GFR-MDRD Greater than 90; Globulin 3.4 g/dL (2.4-3.5); Glucose 91 mg/dL (70-105); Potassium 3.9 mmol/L (3.5-5.1); Protein, Total 7.4 g/dL (6.0-8.3); Sodium 139 mmol/L (136-145)
[2018-10-26] MEDS ORDERED: Morphine 4 MG/ML VIAL ONE ×2 (14:51→19:34)
[2018-10-26 15:08] LABS: Bilirubin Negative (Negative); Blood, Urine Moderate (Negative); Clarity CLOUDY (Clear); Glucose, Urine (Dipstick) Negative (Negative); Leukocyte Negative (Negative); Nitrite Positive (Negative); Protein, Urine (Dipstick) 30 mg/dL (Neg-Trace); Urobilinogen 0.2 mg/dL (0.2-1.0)
[2018-10-26 15:10] LABS: Bacteria/HPF 1+ HPF (None Seen); Pathc Cast-AUWi Flag 27.91 (0-2.49); RBC/HPF 0-3 HPF (0-3); Squamous Epithelial 0-3 HPF (0-3)
[2018-10-26 15:15] LABS: Lactic Acid 0.7 mmol/L (0.5-2.2)
[2018-10-26 15:17] LABS: Hyaline Casts/LPF 7-10 HYALINE CAST LPF (0-3 Hyaline); Renal Epithelial 0-3 HPF (0-3)
[2018-10-26] MEDS ORDERED: ISOVUE-370 76%-LOCM 1 ML ONE (16:43)
[2018-10-26] MEDS ORDERED: Ondansetron PF 4 MG/2 ML Vial ONE (17:16)
--- NOTE | 2018-10-26 17:58 | CT ---
EXAM: ABDOMEN AND PELVIC CT SCAN WITH IV CONTRAST: 10/26/18 HISTORY: 43-year-old female with history of followup surgery on October 05 with small bowel obstruction. COMPARISON: 10/17/18 The lung bases are clear. There appears to be a gallstone within the gallbladder which is borderline distended but stable without pericholecystic fat stranding. The liver, pancreas, spleen, and adrenal glands are unremarkable. There is some scarring and nodularity of the right kidney including a roughl y 0.8 cm diameter nodular exophytic focus off the posterior upper right kidney. This could just repre sent some scarring although the possibility of a small solid renal mass cannot be excluded and follow up imaging in 6 months to a year should probably be considered. There is some scattered up to borderl ine sized retroperitoneal lymph nodes up to 0.8 cm in small axis. There is evidence for right urinary diversion with an ileal pouch with fluid in it with some mild dilatation of both right and left uppe r renal collecting systems. Again noted are anterior midline abdominal surgical changes with some sca ttered air and minimal fluid within the anterior abdominal wall at the surgical site. These are less marked than on the prior study. Left sided colostomy with some minimal adjacent mesenteric fat strand ing herniating into the subcutaneous tissues around the previously noted fluid collection in the left anterior lower abdomen which measured 1.7 x 4.2 cm and is considerably decreased in size now measur ing 0.8 x 1.8 cm. There is some minimal focal small bowel dilatation at the site of the previous smal l bowel anastomosis. Stable osteochondroma off the posterior left ilium bone. Minimal scattered and o verall improving left sided mesenteric fat stranding. The previously noted small bowel wall thickenin g is less prominent on today's study. IMPRESSION: Minimal dilatation of the small bowel at the site of prior anastomosis. Considerable decrease in the size of the previously noted small left lower quadrant anterior fluid collection. Slightly improving fat stranding in the subcutaneous tissue around the colostomy as well as in the left lateral abdomina l mesentery. Some decrease in the wall thickening of the previously noted thickened walled loop of sm all bowel. Somewhat smaller gas and fluid collections in the anterior abdominal wall along the midlin e at the site of prior surgery. No evidence for significant new process. POS: TIRSO
[2018-10-26] MEDS ORDERED: Piperacillin/Tazobactam 4.5 GM VIAL ONE (18:42)
[2018-10-26] MEDS ORDERED: Morphine 4 MG/ML VIAL SLOW IVP PRN (18:50)
[2018-10-26] MEDS ORDERED: Dextrose 50% Abboject 50 ML SYRINGE SLOW IVP PRN (18:50)
[2018-10-26] MEDS ORDERED: hydrALAZINE 20 MG/ML VIAL SLOW IVP PRN (18:50)
[2018-10-26] MEDS ORDERED: Dextrose 5% in Water 1,000 ML IV PRN (18:50)
[2018-10-26] MEDS ORDERED: Acetaminophen 325 MG TAB PO PRN (18:50)
[2018-10-26] MEDS ORDERED: Ondansetron PF 4 MG/2 ML Vial IVP PRN (18:50)
[2018-10-26] MEDS ORDERED: Promethazine HCl 25 MG/ML VIAL IM PRN (18:50)
[2018-10-26] MEDS: D5 1/2 NS w/20 mEq KCL 1,000 ML IV SCH (21:29)
[2018-10-26] MEDS: Famotidine 20 MG TAB PO SCH (21:29)
[2018-10-26] MEDS: Famotidine/PF 20 mg/2ml Vial SLOW IVP SCH (21:29)
[2018-10-26 22:03] VITALS: BMI 25.2
[2018-10-27] MEDS: Morphine 4 MG/ML VIAL SLOW IVP PRN ×3 (00:22→20:29)
[2018-10-27] MEDS: Piperacillin/Tazobactam 3.375 GM in Sodium Chloride 0.9% 100 ML IVPB SCH ×4 (00:22→17:32)
[2018-10-27] MEDS: HYDROcodone/Acetaminophen 10/325 mg Tablet PO PRN ×3 (03:23→22:31)
[2018-10-27] MEDS: D5 1/2 NS w/20 mEq KCL 1,000 ML IV SCH ×4 (03:24→21:32)
[2018-10-27] MEDS: Famotidine/PF 20 mg/2ml Vial SLOW IVP SCH ×2 (08:49→20:30)
[2018-10-27] MEDS: Famotidine 20 MG TAB PO SCH ×2 (09:39→20:30)
[2018-10-27] MEDS ORDERED: Midazolam HCl 2 mg/2 ml Vial ONE (11:37)
[2018-10-27] MEDS ORDERED: Fentanyl 100 MCG/2 ML VIAL ONE (11:38)
[2018-10-27] MEDS ORDERED: Piperacillin/Tazobactam 3.375 GM VIAL ONE (11:55)
[2018-10-27] MEDS ORDERED: Bupivacaine/Epinephrine 0.25% 30 ML VIAL ONE (11:55)
[2018-10-27] MEDS ORDERED: Promethazine HCl 25 MG/ML VIAL IM PRN (12:34)
[2018-10-27] MEDS ORDERED: Promethazine HCl 25 MG/ML VIAL SLOW IVP PRN (12:34)
[2018-10-27] MEDS ORDERED: Ketorolac Tromethamine 30 MG/ML VIAL IVP PRN (12:34)
[2018-10-27] MEDS ORDERED: Ondansetron HCl/PF 4 MG/2 ML Vial IVP PRN (12:34)
[2018-10-27] MEDS ORDERED: Polyethylene Glycol 3350 17 GM Packet PO SCH (13:45)
[2018-10-27] MEDS ORDERED: Dexamethasone 20 MG/5 ML VIAL ONE (20:26)
[2018-10-27] MEDS ORDERED: Ondansetron PF 4 MG/2 ML Vial ONE (20:26)
[2018-10-27] MEDS ORDERED: PHENYLEPHRINE-NS 100 MCG/ML 10 ML SYRINGE ONE (20:26)
[2018-10-27] MEDS ORDERED: PROPOFOL 200 MG/20 ML VIAL ONE (20:26)
[2018-10-27] MEDS ORDERED: Lidocaine 1% PF 5 ML VIAL ONE (20:26)
[2018-10-27] MEDS ORDERED: ePHEDrine/0.9% NaCl/PF SYRINGE 50 mg/10 ml ONE (20:26)
[2018-10-28] MEDS: Piperacillin/Tazobactam 3.375 GM in Sodium Chloride 0.9% 100 ML IVPB SCH ×3 (00:26→11:00)
[2018-10-28] MEDS: Morphine 4 MG/ML VIAL SLOW IVP PRN (02:59)
[2018-10-28] MEDS: D5 1/2 NS w/20 mEq KCL 1,000 ML IV SCH (08:00)
[2018-10-28] MEDS: HYDROcodone/Acetaminophen 10/325 mg Tablet PO PRN ×2 (08:45→13:42)
[2018-10-28] MEDS: Famotidine 20 MG TAB PO SCH (08:45)
[2018-10-28] MEDS: Famotidine/PF 20 mg/2ml Vial SLOW IVP SCH (08:46)
[2018-10-28] MEDS ORDERED: Polyethylene Glycol 3350 17 GM Packet PO SCH ×2 (09:00→21:00)
[2018-10-28 11:25] VITALS: BP 92/61; TEMP 98.1
--- NOTE | 2018-10-28 13:15 | OP ---
DATE OF PROCEDURE: 10/27/2018 PREOPERATIVE DIAGNOSIS: Infected wound. POSTOPERATIVE DIAGNOSIS: Infected wound. PROCEDURE PERFORMED: Washout of infected wound. ANESTHESIA: General. ESTIMATED BLOOD LOSS: Minimal. COMPLICATION: None. FINDINGS: There is no fascial dehiscence. There is no evidence of enterocutaneous fistula or connection to ostomy of colostomy or urostomy. DESCRIPTION OF PROCEDURE: The patient was taken to the operating room and laid supine on the operating room table. After general anesthetic was obtained, the frannie were removed. The abdomen was prepped and draped in a sterile fashion. The area of drainage in the lower incision, the wound was opened up all the way down to the muscle. There was no significant purulence. The wound was irrigated. There was a small tunnel up a little more superior, but it does not communicate with a larger cavity. There was no fistula to the inside of the abdomen. There were no enteric contents. The wound was irrigated and packed using wet-to-dry saline-soaked gauze followed by dry sterile dressings. The patient was sent to Recovery in stable condition. All instrument counts, needle counts, and lap counts were correct. Job ID: [id number]
--- NOTE | 2018-10-28 13:35 | DIS ---
DATE OF ADMISSION: 10/26/2018 DATE OF DISCHARGE: 10/28/2018 ADMITTING DIAGNOSIS: Wound infection from parastomal hernia repair. DISCHARGE DIAGNOSIS: Wound infection from parastomal hernia repair. PROCEDURE: Washout of abdominal wound. CONDITION ON DISCHARGE: Improved. STAFF: Dr. Hurd. HOSPITAL COURSE: The patient was admitted with drainage from her lower incision. She went to the operating room to have this washed out and explored. There was no evidence of enterocutaneous fistula. The wound was packed using wet-to-dry saline-soaked gauze. She has no evidence of sepsis or significant infection. [facility] She needs wound care to be done daily there, wet-to-dry dressings, and she needs to see me back in 2 weeks in the office. Job ID: [id number]
== END 2018-10-28 15:50 ==
LOC: ERS 12:59 → SURG A 18:39
PROVIDERS: ADMIT Surgery; ATTEND Surgery
PROC: 0W9F0ZZ Drainage of Abdominal Wall, Open Approach (ICD-10-PCS; principal; 2018-10-27)
DX: T81.42XA Infection following a procedure, deep incisional surgical site, initial encounter (principal); Z93.3 Colostomy status; Z79.899 Other long term (current) drug therapy; Z79.2 Long term (current) use of antibiotics
CPT/HCPCS: 36415; 74177; 80053; 81003; 81015; 83605; 85025; 96361; 96365; 96366; 96375; 96376; G0378; J1100; J2001; J2250; J2270; J2405; J2543; J2704; J3010; J7050; S0028

== ENCOUNTER 2018-11-01 18:48 | Emergency (ER) | payer OTHER ==
[2018-11-01 19:32] LABS: #Basophils 0.1 thou/uL (0.0-0.2); #Eosinphils 0.5 thou/uL (0.0-0.7); #Lymphocytes 2.3 thou/uL (1.20-3.40); #Monocytes 0.9 thou/uL (0.11-0.59); #Neutrophils 5.6 thou/uL (1.40-6.50); %Basophils 0.5 % (0.0-1.0); %Eosinophils 5.2 % (0.0-10.0); %Lymphocytes 24.9 % (21.0-51.0); %Monocytes 9.1 % (0.0-10.0); %Neutrophils 60.2 % (42.0-75.0); Hemoglobin 11.6 g/dL (12.0-16.0); Mean Corpuscular HGB CONC 33.9 g/dL (32.0-36.0); Mean Corpuscular Volume 91.2 fL (78.0-98.0); Mean Platelet Volume 7.6 fL (7.4-10.4); Platelet Count 307 thou/uL (130-400); RBC Distribution Width 12.7 % (11.5-14.5); Red Blood Cell (RBC) Count 3.74 mill/uL (4.20-5.40); White Blood Cell (WBC) Count 9.3 thou/uL (4.8-10.8)
[2018-11-01 19:48] LABS: ALT (SGPT) 20 U/L (8-55); AST (SGOT) 15 U/L (5-34); Alkaline Phosphatase 36 U/L (40-150); Anion Gap 13 mmol/L (10-20); BUN (Urea Nitrogen) 15 mg/dL (7.0-18.7); Bilirubin, Total 0.2 mg/dL (0.2-1.2); Calc. Creatinine Clearance 0 mL/min (70-130); Calcium 9.3 mg/dL (7.8-10.44); Carbon Dioxide 22 mmol/L (22-29); Chloride 110 mmol/L (98-107); Estimated GFR-MDRD 82; Globulin 3.3 g/dL (2.4-3.5); Glucose 95 mg/dL (70-105); Potassium 3.8 mmol/L (3.5-5.1); Protein, Total 7.3 g/dL (6.0-8.3); Sodium 141 mmol/L (136-145)
[2018-11-01] MEDS ORDERED: Morphine 4 MG/ML VIAL ONE (21:19)
--- NOTE | 2018-11-01 22:04 | RAD ---
ABDOMEN TWO VIEWS CHEST ONE VIEW: 11/01/18 HISTORY: 43-year-old female with history of abdominal pain and recent surgeries. FINDINGS: No significant acute intrathoracic disease. There is gas and fecal material throughout the colon. There are numerous surgical clips in the lower abdomen and overlying the pelvis. Moderate fecal material noted, particularly in the right colon and transverse colon. No evidence for overt bowel obstruction. No free intraperitoneal air. No overt calc ulus. IMPRESSION: Unremarkable abdomen two views, chest one view. Postop changes in the lower abdomen and pelvis. POS: TIRSO
== END 2018-11-01 23:27 ==
LOC: ERS 18:48
DX: T81.30XA Disruption of wound, unspecified, initial encounter (principal); K94.02 Colostomy infection; Z79.899 Other long term (current) drug therapy; Z93.6 Other artificial openings of urinary tract status
CPT/HCPCS: 74022; 80053; 85025; 87070; 87205; 96374; J2270

== ENCOUNTER 2018-12-13 10:53 | Inpatient (IN) | payer OTHER ==
[2018-12-13 11:34] LABS: Hemoglobin 11.6 g/dL (12.0-16.0); Mean Corpuscular HGB CONC 32.5 g/dL (32.0-36.0); Mean Corpuscular Hemoglobin 29.5 pg (27.0-31.0); Mean Corpuscular Volume 90.7 fL (78.0-98.0); Mean Platelet Volume 7.6 fL (7.4-10.4); Platelet Count 301 thou/uL (130-400); RBC Distribution Width 12.7 % (11.5-14.5); Red Blood Cell (RBC) Count 3.92 mill/uL (4.20-5.40)
[2018-12-13] MEDS ORDERED: cefTRIAXone\\ROCEPHIN 1 GM VIAL ONE (11:53)
[2018-12-13 11:54] LABS: Band 20 % (5-11); Lymphocytes 2 % (21-51); MDiff Complete? YES; Metamyelocyte 1 % (0-0); Monocytes 11 % (0-10); Myelocyte 1 % (0-0); Neutrophil 65 % (42-75); Platelet Morphology Comment Appears Adequate; Vacuoles SLIGHT
[2018-12-13 11:55] LABS: ALT (SGPT) 8 U/L (8-55); AST (SGOT) 11 U/L (5-34); Albumin 3.9 g/dL (3.5-5.0); Alkaline Phosphatase 58 U/L (40-150); Anion Gap 15 mmol/L (10-20); BUN (Urea Nitrogen) 19 mg/dL (7.0-18.7); Bilirubin, Total 0.8 mg/dL (0.2-1.2); Calc. Creatinine Clearance 0 mL/min (70-130); Calcium 9.1 mg/dL (7.8-10.44); Carbon Dioxide 17 mmol/L (22-29); Chloride 104 mmol/L (98-107); Estimated GFR-MDRD 62; Globulin 3.3 g/dL (2.4-3.5); Glucose 128 mg/dL (70-105); Potassium 3.5 mmol/L (3.5-5.1); Protein, Total 7.2 g/dL (6.0-8.3)
[2018-12-13] MEDS ORDERED: Water For Inject, Bacteriostat 30 ML ONE (11:55)
--- NOTE | 2018-12-13 12:09 | RAD ---
CHEST 1 VIEW: Date: 12/13/18 HISTORY: Cough. COMPARISON: Radiograph dated 11/01/18. FINDINGS: Lungs are clear. No pneumothorax or effusion. Cardiac silhouette and mediastinal contours are within normal limits. IMPRESSION: No acute intrathoracic abnormality. POS: TPC
[2018-12-13] MEDS ORDERED: Acetaminophen 325 MG TAB ONE (12:52)
[2018-12-13 13:05] LABS: Bilirubin Small (Negative); Blood, Urine Small (Negative); Clarity CLOUDY (Clear); Glucose, Urine (Dipstick) Negative (Negative); Leukocyte Large (Negative); Nitrite Negative (Negative); Protein, Urine (Dipstick) 100 mg/dL (Neg-Trace); Specific Gravity, Urine 1.017 (1.002-1.036); pH, Urine 6.5 (5.0-9.0)
[2018-12-13 13:07] LABS: Bacteria/HPF 4+ HPF (None Seen); RBC/HPF 0-3 HPF (0-3); Squamous Epithelial None Seen HPF (0-3); Yeast-AUWi Flag 14.6 (0-25.0)
[2018-12-13 13:09] LABS: Pathc Cast-AUWi Flag 2.89 (0-2.49)
[2018-12-13 13:19] LABS: Hyaline Casts/LPF 0-3 HYALINE CAST LPF (0-3 Hyaline); Other Casts/LPF None Seen LPF (0-3 Hyaline)
[2018-12-13 13:37] LABS: Sodium 135 mmol/L (136-145)
[2018-12-13] MEDS ORDERED: Bisacodyl 5 MG TAB PO PRN (14:30)
[2018-12-13] MEDS ORDERED: Senokot S 8.6-50 MG TAB PO PRN (14:30)
[2018-12-13] MEDS ORDERED: hydrALAZINE 20 MG/ML VIAL SLOW IVP PRN (14:30)
[2018-12-13] MEDS ORDERED: Ondansetron PF 4 MG/2 ML Vial IVP PRN (14:30)
[2018-12-13] MEDS ORDERED: cloNIDine 0.1 MG TAB PO PRN (14:30)
[2018-12-13] MEDS ORDERED: Benzonatate 100 MG CAP PO PRN (14:30)
[2018-12-13] MEDS ORDERED: traMADol HCl 50 MG TAB ONE (15:29)
[2018-12-13] MEDS ORDERED: PROVENTIL INHALER 6.7 G (200 INHALATIONS) INH PRN (15:39)
[2018-12-13 16:24] VITALS: BMI 26.7
--- NOTE | 2018-12-13 16:30 | HP ---
PRIMARY CARE PHYSICIAN: None. The patient is an inmate. CHIEF COMPLAINT: Fever and chills. HISTORY OF PRESENTING ILLNESS: Ms. Thornton is a 43-year-old female with past medical history of multiple abdominal surgeries including urostomy on one side, a colostomy on the other side, and a midline scar with recent wound infection requiring a washout, presented to the emergency room with the above-mentioned complaint. History is mainly obtained by the patient herself and electronic medical records have been reviewed. Case has been discussed with admitting ER physician. The patient reports that she has been feeling poorly for the last 2 days. She has been having fever, chills since two days ago. Yesterday, she started to have flank pain on the right side and started to vomit this morning. 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 Since then she has had undergone multiple additional procedures for abdominal wall reconstruction as well as vaginal reconstruction. She was recently admitted to our facility twice in October 2018. During the first admission, she was found to have a strangulated incarcerated parastomal hernia, which was repaired by Dr. Hurd. She was admitted again later last month with wound infection from the hernia repair requiring additional washout. Since then, she has had one more small procedure for upper incisional wound infection at Dr. Hurd's office. In the emergency room today, she was found to be septic with a temperature of 100.6. She was tachycardic with heart rate anywhere from 104 to 110, and blood pressure as low as 85/68. She was resuscitated with IV fluids and her workup showed evidence of urinary tract infection with +4 bacteria in the urine with multiple leukocyte esterase, wbc's. Her serum white blood cell count is elevated to 26,000 with 20% bands. She denies any other recent illnesses. She denies any cough, but she has been having some cough every time she tries to take a deep breath in. She denies any sick contacts in the halfway. She denies any loose stools or diarrhea, has been having normal stools in her colostomy. ER COURSE: She is given vancomycin and Rocephin in the emergency room. She is now being admitted to the hospital for sepsis. Chest x-ray done today is negative for any infiltrates. 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 Otherwise, no significant past medical history. PAST SURGICAL HISTORY: 1. Total pelvic exenteration. 2. Three vaginal reconstruction surgery. 3. Colostomy. 4. Urostomy in 1976. 5. Hysterectomy at the age of seven months in 1976. 6. Breast augmentation. 7. Stoma for colostomy replaced 10/05/2018. ALLERGIES: NO KNOWN MEDICATION ALLERGIES. CURRENT MEDICATIONS: Lactulose 15 mL twice a day. FAMILY HISTORY: No significant family history of any premature coronary artery disease or stroke. REVIEW OF SYSTEMS: A 12-point review of system is done. It is negative except for those mentioned in the history and physical. SOCIAL HISTORY: She is currently incarcerated. No history of alcohol, drug, or tobacco abuse. LABORATORY DATA: Her CBC shows WBCs of 26,000, hemoglobin 11.6, and platelet count of 301, 20% bands, 65% neutrophils. Serum chemistry shows sodium 135, bicarb 17, BUN 19, creatinine 0.99. Lactic acid normal at 1.5. Urinalysis shows large leukocyte esterase, multiple wbc's and +4 bacteria. Chest x-ray by my review has no evidence to suggest pleural effusion, edema, or infiltrate. She has had an acute abdominal scan done on 11/01/2018, which was unremarkable. PHYSICAL EXAMINATION: VITAL SIGNS: Upon presentation, blood pressure 98/59, pulse of 119, respirations 19, temperature 102.1, saturating 97% on room air. Most recent blood pressure 113/66 with a pulse of 121. GENERAL: The patient has visible chills and she gets short of breath with conversation, otherwise in no acute distress. Awake, alert, and oriented x3. HEENT: Mucous membranes slightly dry. No oropharyngeal exudate or erythema. Head is normocephalic, atraumatic. Pupils are equal and reactive to light and accommodation. Extraocular movements are intact. NECK: Supple without any lymphadenopathy, JVD, or bruit. CHEST: Clear to auscultation without any wheezing, rales, or rhonchi. She is tachycardic with regular rhythm without any significant murmurs. ABDOMEN: Revealed right urostomy with clear urine in it. She has a left colostomy, which is full of semi solids brown stool. The midline scar is dressed with well-healing wound at the top and the lower portion. She has right-sided costovertebral angle tenderness. EXTREMITIES: Free of any cyanosis, clubbing, or edema. NEUROLOGIC: Nonfocal. SKIN: Free of any rashes or bruises, feels warm and dry to touch. PSYCHIATRIC: Normal affect. IMPRESSION AND PLAN: 1. Sepsis with septic shock. This is secondary to severe urinary tract infection. The patient will be admitted to telemetry floor with broad-spectrum IV antibiotics. Urine culture and blood cultures have been obtained. She will be continued on IV fluids and will be started on pressor support if her blood pressure does not sustain. Symptomatic and supportive care will be initiated. 2. Multiple abdominal surgeries. We will request consultation with Dr. Hurd with regard to recent surgeries and incisional wound. At this time, the wound does not appear to be the cause of her sepsis. 3. Hyponatremia, likely secondary to mild dehydration. IV fluids have been ordered as above. 4. Deep venous thrombosis and gastrointestinal prophylaxis. 5. Add walking program. DISPOSITION: Ms. Thornton is currently being admitted to telemetry floor for severe sepsis with septic shock, which is not resolving. She has UTI and we will require at least 2 to 3 days of IV antibiotics. Further management will depend upon clinical course. Job ID: [id number]
[2018-12-13] MEDS: Sodium Chloride 0.9% 1,000 ML IV SCH (17:02)
[2018-12-13] MEDS: Acetaminophen 500 MG TAB PO PRN (18:12)
[2018-12-13] MEDS: Famotidine 20 MG TAB PO SCH (20:56)
[2018-12-13] MEDS ORDERED: Vancomycin HCl 1 GM in Sodium Chloride 0.9% 250 ML 300 ML IVPB SCH (21:00)
[2018-12-13] MEDS: Vancomycin HCl 1 GM in Premix Bag 1 BAG IVPB SCH (23:10)
[2018-12-14] MEDS: Acetaminophen 500 MG TAB PO PRN (00:34)
[2018-12-14] MEDS ORDERED: Ibuprofen 200 MG TAB PO SCH (01:00)
[2018-12-14] MEDS: Sodium Chloride 0.9% 1,000 ML IV SCH ×2 (03:27→14:40)
[2018-12-14 05:46] LABS: Band 6 % (5-11); Hemoglobin 9.2 g/dL (12.0-16.0); Hypochromia SLIGHT = 6-15 cells (100X) (0-5/hpf); Lymphocytes 3 % (21-51); MDiff Complete? YES; Mean Corpuscular HGB CONC 32.8 g/dL (32.0-36.0); Mean Corpuscular Hemoglobin 29.8 pg (27.0-31.0); Monocytes 6 % (0-10); Neutrophil 85 % (42-75); Platelet Count 226 thou/uL (130-400); Platelet Morphology Comment Appears Adequate; RBC Distribution Width 12.8 % (11.5-14.5); Red Blood Cell (RBC) Count 3.09 mill/uL (4.20-5.40); White Blood Cell (WBC) Count 21.1 thou/uL (4.8-10.8)
[2018-12-14 05:49] LABS: Anion Gap 12 mmol/L (10-20); BUN (Urea Nitrogen) 12 mg/dL (7.0-18.7); Calc. Creatinine Clearance 109 mL/min (70-130); Calcium 8.1 mg/dL (7.8-10.44); Carbon Dioxide 16 mmol/L (22-29); Chloride 112 mmol/L (98-107); Estimated GFR-MDRD 87; Glucose 123 mg/dL (70-105); Potassium 3.2 mmol/L (3.5-5.1); Sodium 137 mmol/L (136-145)
[2018-12-14] MEDS: Enoxaparin Sodium 40 MG/0.4 ML SYRINGE SC SCH (08:36)
[2018-12-14] MEDS: Famotidine 20 MG TAB PO SCH ×2 (08:36→20:52)
[2018-12-14] MEDS ORDERED: Potassium Chloride 40 MEQ in Premix Bag 1 BAG IVPB SCH (09:15)
[2018-12-14] MEDS ORDERED: Potassium Chloride 20 MEQ in Premix Bag 1 BAG IVPB SCH (10:00)
[2018-12-14] MEDS: Vancomycin HCl 1 GM in Premix Bag 1 BAG IVPB SCH ×2 (10:32→23:29)
[2018-12-14] MEDS ORDERED: Potassium Chloride 20 MEQ TAB PO SCH (11:15)
--- NOTE | 2018-12-14 12:50 | PDOC.PN ---
- Subjective Encounter Start Date: 12/14/18 Encounter Start Time: 12:49 Subjective: feels better this morning.had fever all night last night - Objective MAR Reviewed: Yes Vital Signs & Weight: Vital Signs (12 hours) Temp Pulse Resp BP Pulse Ox 12/14/18 11:58 98 F 92 16 98/53 L 99 12/14/18 08:35 99 12/14/18 08:32 97.9 F 85 16 91/59 L 99 12/14/18 03:45 98.6 F 96 18 105/52 L 96 Weight Weight 151 lb I&O: 12/13/18 12/14/18 12/15/18 06:59 06:59 06:59 Intake Total 2140 Output Total 1600 Balance 540 Result Diagrams: 12/14/18 04:59 12/14/18 04:59 Additional Labs: Microbiology 12/13/18 12:41 Urine voided Urine Culture - Preliminary Presumptive Escherichia coli Phys Exam - Physical Examination Constitutional: NAD HEENT: PERRLA, moist MMs, sclera anicteric, oral pharynx no lesions Neck: no nodes, no JVD, supple, full ROM Respiratory: no wheezing, no rales, no rhonchi, clear to auscultation bilateral Cardiovascular: RRR, no significant murmur, no rub Gastrointestinal: soft, non-tender, no distention, positive bowel sounds urostomy and colostomy in place Musculoskeletal: no edema, pulses present Neurological: non-focal, normal sensation, moves all 4 limbs Dx/Plan (1) Sepsis Code(s): A41.9 - SEPSIS, UNSPECIFIED ORGANISM Status: Acute (2) UTI (urinary tract infection) Status: Acute (3) History of urostomy Code(s): Z98.890 - OTHER SPECIFIED POSTPROCEDURAL STATES Status: Chronic (4) Colostomy care Code(s): Z43.3 - ENCOUNTER FOR ATTENTION TO COLOSTOMY Status: Chronic (5) Chronic abdominal wound infection Code(s): S31.109A - UNSP OPN WND ABD WALL, UNSP Q W/O PENET PERIT CAV, INIT; L08.9 - LOCAL INFECTION OF THE SKIN AND SUBCUTANEOUS TISSUE, UNSP Status: Chronic - Plan continue antibiotics, DVT proph w/SCDs clinically better -: cont ABX empirically. -: follow Cx results -: AM labs * . Review of Systems - Review of Systems Constitutional: fever, weakness, malaise ENT: negative: Ear Pain, Ear Discharge, Nose Pain, Nose Discharge, Nose Congestion, Mouth Pain, Mouth Swelling, Throat Pain, Throat Swelling, Other Respiratory: negative: Cough, Dry, Shortness of Breath, Hemoptysis, SOB with Excertion, Pleuritic Pain, Sputum, Wheezing Cardiovascular: negative: chest pain, palpitations, orthopnea, paroxysmal nocturnal dyspnea, edema, light headedness, other Gastrointestinal: negative: Nausea, Vomiting, Abdominal Pain, Diarrhea, Constipation, Melena, Hematochezia, Other Genitourinary: negative: Dysuria, Frequency, Incontinence, Hematuria, Retention , Other Musculoskeletal: negative: Neck Pain, Shoulder Pain, Arm Pain, Back Pain, Hand Pain, Leg Pain, Foot Pain, Other Neurological: negative: Weakness, Numbness, Incoordination, Change in Speech, Confusion, Seizures, Other - Medications/Allergies Allergies/Adverse Reactions: Allergies Allergy/AdvReac Type Severity Reaction Status Date / Time No Known Drug Allergies Allergy Verified 10/07/18 17:29 Medications: Current Medications Acetaminophen (Tylenol) 1,000 mg PO Q6H PRN PRN Reason: Mild Pain (1-3) Last Admin: 12/14/18 00:34 Dose: 1,000 mg Acetaminophen (Tylenol) 650 mg PO Q4H PRN PRN Reason: Headache/Fever/Mild Pain (1-3) Albuterol Sulfate (Proventil Hfa) 1 puff INH QIDPRN PRN PRN Reason: bronchospasm Benzonatate (Tessalon) 100 mg PO Q6H PRN PRN Reason: Cough Bisacodyl (Dulcolax) 10 mg PO DAILYPRN PRN PRN Reason: Constipation Clonidine (Catapres) 0.1 mg PO Q4H PRN PRN Reason: SBP >160 ____ Enoxaparin Sodium (Lovenox) 40 mg SC 0900 [facility] Last Admin: 12/14/18 08:36 Dose: 40 mg Famotidine (Pepcid) 20 mg PO BID [facility] Last Admin: 12/14/18 08:36 Dose: 20 mg Guaifenesin (Robitussin Sf) 200 mg PO Q4H PRN PRN Reason: Cough Hydralazine HCl (Apresoline) 10 mg SLOW IVP Q4H PRN PRN Reason: SBP > 180 and HR < 70 Ceftriaxone Sodium 2 gm/ (Sodium Chloride) 100 mls @ 200 mls/hr IVPB 1200 [facility] Sodium Chloride (Normal Saline 0.9%) 1,000 mls @ 100 mls/hr IV .Q10H [facility] Last Admin: 12/14/18 03:27 Dose: 1,000 mls Vancomycin HCl 1 gm/ Device 200 mls @ 200 mls/hr IVPB 1100,2300 [facility] Last Admin: 12/14/18 10:32 Dose: 200 mls Lactulose (Lactulose) 10 gm PO BIDPRN PRN PRN Reason: constipation Ondansetron HCl (Zofran) 4 mg IVP Q6H PRN PRN Reason: Nausea/Vomiting Potassium Chloride (K-Dur) 40 meq PO 1115 [facility] Stop: 12/14/18 13:00 Last Admin: 12/14/18 12:00 Dose: 40 meq Senna/Docusate Sodium (Senokot S) 2 tab PO BID PRN PRN Reason: Constipation Sodium Chloride (Flush - Normal Saline) 10 ml IVF Q12HR [facility] Sodium Chloride (Flush - Normal Saline) 10 ml IVF PRN PRN PRN Reason: Saline Flush
[2018-12-14] MEDS: cefTRIAXone\\ROCEPHIN 2 GM in Sodium Chloride 0.9% 100 ML IVPB SCH (14:39)
[2018-12-14] MEDS: Acetaminophen 325 MG TAB PO PRN ×2 (14:40→20:52)
[2018-12-14] MEDS: Ibuprofen 200 MG TAB PO PRN (17:46)
[2018-12-14] MEDS ORDERED: LACTULOSE PO SCH (21:00)
[2018-12-15] MEDS: Acetaminophen 325 MG TAB PO PRN ×2 (02:09→23:08)
[2018-12-15] MEDS: Sodium Chloride 0.9% 1,000 ML IV SCH ×3 (04:38→21:09)
[2018-12-15] MEDS: Ibuprofen 200 MG TAB PO PRN ×2 (04:45→20:12)
[2018-12-15] MEDS: Diabetic Tussin 200 MG/10 ML UDCUP PO PRN ×3 (05:11→21:08)
[2018-12-15 05:38] LABS: Anion Gap 14 mmol/L (10-20); BUN (Urea Nitrogen) 8 mg/dL (7.0-18.7); Calc. Creatinine Clearance 137 mL/min (70-130); Calcium 8.6 mg/dL (7.8-10.44); Carbon Dioxide 15 mmol/L (22-29); Chloride 115 mmol/L (98-107); Estimated GFR-MDRD Greater than 90; Glucose 94 mg/dL (70-105); Potassium 3.7 mmol/L (3.5-5.1); Sodium 140 mmol/L (136-145)
[2018-12-15 05:45] LABS: Band 23 % (5-11); Hemoglobin 9.9 g/dL (12.0-16.0); Lymphocytes 7 % (21-51); MDiff Complete? YES; Mean Corpuscular HGB CONC 33.1 g/dL (32.0-36.0); Mean Corpuscular Hemoglobin 30.1 pg (27.0-31.0); Mean Corpuscular Volume 91.2 fL (78.0-98.0); Mean Platelet Volume 8.4 fL (7.4-10.4); Monocytes 8 % (0-10); Neutrophil 62 % (42-75); Platelet Count 268 thou/uL (130-400); Platelet Morphology Comment Appears Adequate; RBC Distribution Width 13.4 % (11.5-14.5); Red Blood Cell (RBC) Count 3.27 mill/uL (4.20-5.40); White Blood Cell (WBC) Count 16.9 thou/uL (4.8-10.8)
[2018-12-15] MEDS: Acetaminophen 500 MG TAB PO PRN ×2 (07:36→16:10)
[2018-12-15] MEDS ORDERED: Iopamidol 370 76% 100 ML VIAL ONE (07:51)
[2018-12-15] MEDS: Famotidine 20 MG TAB PO SCH ×2 (08:41→20:12)
[2018-12-15] MEDS: Enoxaparin Sodium 40 MG/0.4 ML SYRINGE SC SCH (08:41)
[2018-12-15] MEDS: Vancomycin HCl 1 GM in Premix Bag 1 BAG IVPB SCH ×2 (11:13→23:08)
[2018-12-15] MEDS: cefTRIAXone\\ROCEPHIN 2 GM in Sodium Chloride 0.9% 100 ML IVPB SCH (12:37)
--- NOTE | 2018-12-15 13:40 | PDOC.PN ---
- Subjective Encounter Start Date: 12/15/18 Encounter Start Time: 13:38 Subjective: feels much better.some headache and cough w rib pain - Objective MAR Reviewed: Yes Vital Signs & Weight: Vital Signs (12 hours) Temp Pulse Resp BP Pulse Ox 12/15/18 11:09 98.0 F 85 18 121/83 97 12/15/18 08:41 97 12/15/18 07:32 98.3 F 89 18 116/59 L 97 12/15/18 03:29 100.5 F H 105 H 16 116/58 L 97 Weight Weight 151 lb I&O: 12/14/18 12/15/18 12/16/18 06:59 06:59 06:59 Intake Total 2140 3843 Output Total 1600 3725 Balance 540 118 Result Diagrams: 12/15/18 04:31 12/15/18 04:31 Additional Labs: Microbiology 12/13/18 12:41 Urine voided Urine Culture - Final Escherichia coli Gram Negative Angel#2 12/13/18 12:41 Urine voided Urine Culture - Preliminary Escherichia coli 12/13/18 11:52 Venous blood - Left Arm Blood Culture - Preliminary Specimen has been received and culture in progress. No Growth to date. 12/13/18 11:52 Venous blood - Left Arm Blood Culture - Preliminary NO GROWTH AT 48 HOURS 12/13/18 11:20 Venous blood - Right Arm Blood Culture - Preliminary Specimen has been received and culture in progress. No Growth to date. 12/13/18 11:20 Venous blood - Right Arm Blood Culture - Preliminary NO GROWTH AT 48 HOURS Phys Exam - Physical Examination Constitutional: NAD HEENT: PERRLA, moist MMs, sclera anicteric, oral pharynx no lesions Neck: no nodes, no JVD, supple, full ROM Respiratory: no wheezing, no rales, no rhonchi, clear to auscultation bilateral Cardiovascular: RRR, no significant murmur Gastrointestinal: soft, non-tender, no distention, positive bowel sounds Musculoskeletal: no edema, pulses present Neurological: non-focal, normal sensation, moves all 4 limbs Psychiatric: normal affect, A&O x 3 Skin: no rash Dx/Plan (1) Sepsis Code(s): A41.9 - SEPSIS, UNSPECIFIED ORGANISM Status: Acute (2) UTI (urinary tract infection) Status: Acute Comment: E.Coli (3) History of urostomy Code(s): Z98.890 - OTHER SPECIFIED POSTPROCEDURAL STATES Status: Chronic (4) Colostomy care Code(s): Z43.3 - ENCOUNTER FOR ATTENTION TO COLOSTOMY Status: Chronic (5) Chronic abdominal wound infection Code(s): S31.109A - UNSP OPN WND ABD WALL, UNSP Q W/O PENET PERIT CAV, INIT; L08.9 - LOCAL INFECTION OF THE SKIN AND SUBCUTANEOUS TISSUE, UNSP Status: Chronic - Plan continue antibiotics, PT/OT, incentive spirometry, out of bed/ambulate, DVT proph w/SCDs clinically better. cont both Abx untill final Cx results ar eback -: likely Dc tomorrow. -: cont antitussives etc.supportive care -: am labs -: DC IVF * . Review of Systems - Review of Systems Constitutional: weakness. negative: fever, chills, sweats, malaise, other Respiratory: Cough. negative: Dry, Shortness of Breath, Hemoptysis, SOB with Excertion, Pleuritic Pain, Sputum, Wheezing Cardiovascular: negative: chest pain, palpitations, orthopnea, paroxysmal nocturnal dyspnea, edema, light headedness, other Gastrointestinal: negative: Nausea, Vomiting, Abdominal Pain, Diarrhea, Constipation, Melena, Hematochezia, Other Genitourinary: negative: Dysuria, Frequency, Incontinence, Hematuria, Retention , Other Musculoskeletal: negative: Neck Pain, Shoulder Pain, Arm Pain, Back Pain, Hand Pain, Leg Pain, Foot Pain, Other Neurological: negative: Weakness, Numbness, Incoordination, Change in Speech, Confusion, Seizures, Other - Medications/Allergies Allergies/Adverse Reactions: Allergies Allergy/AdvReac Type Severity Reaction Status Date / Time No Known Drug Allergies Allergy Verified 10/07/18 17:29 Medications: Current Medications Acetaminophen (Tylenol) 1,000 mg PO Q6H PRN PRN Reason: Mild Pain (1-3) Last Admin: 12/15/18 07:36 Dose: 1,000 mg Acetaminophen (Tylenol) 650 mg PO Q4H PRN PRN Reason: Headache/Fever/Mild Pain (1-3) Last Admin: 12/15/18 02:09 Dose: 650 mg Albuterol Sulfate (Proventil Hfa) 1 puff INH QIDPRN PRN PRN Reason: bronchospasm Last Admin: 12/14/18 21:05 Dose: 1 puff Benzonatate (Tessalon) 100 mg PO Q6H PRN PRN Reason: Cough Last Admin: 12/15/18 02:07 Dose: 100 mg Bisacodyl (Dulcolax) 10 mg PO DAILYPRN PRN PRN Reason: Constipation Clonidine (Catapres) 0.1 mg PO Q4H PRN PRN Reason: SBP >160 ____ Enoxaparin Sodium (Lovenox) 40 mg SC 0900 [facility] Last Admin: 12/15/18 08:41 Dose: 40 mg Famotidine (Pepcid) 20 mg PO BID [facility] Last Admin: 12/15/18 08:41 Dose: 20 mg Guaifenesin (Robitussin Sf) 200 mg PO Q4H PRN PRN Reason: Cough Last Admin: 12/15/18 05:11 Dose: 200 mg Hydralazine HCl (Apresoline) 10 mg SLOW IVP Q4H PRN PRN Reason: SBP > 180 and HR < 70 Ceftriaxone Sodium 2 gm/ (Sodium Chloride) 100 mls @ 200 mls/hr IVPB 1200 [facility] Last Admin: 12/15/18 12:37 Dose: 100 mls Sodium Chloride (Normal Saline 0.9%) 1,000 mls @ 100 mls/hr IV .Q10H [facility] Last Admin: 12/15/18 07:08 Dose: Not Given Vancomycin HCl 1 gm/ Device 200 mls @ 200 mls/hr IVPB 1100,2300 [facility] Last Admin: 12/15/18 11:13 Dose: 200 mls Ibuprofen (Motrin) 200 mg PO Q8H PRN PRN Reason: fever Last Admin: 12/15/18 04:45 Dose: 200 mg Lactulose (Lactulose) 10 gm PO BIDPRN PRN PRN Reason: constipation Ondansetron HCl (Zofran) 4 mg IVP Q6H PRN PRN Reason: Nausea/Vomiting Senna/Docusate Sodium (Senokot S) 2 tab PO BID PRN PRN Reason: Constipation Sodium Chloride (Flush - Normal Saline) 10 ml IVF Q12HR [facility] Last Admin: 12/15/18 08:42 Dose: Not Given Sodium Chloride (Flush - Normal Saline) 10 ml IVF PRN PRN PRN Reason: Saline Flush
--- NOTE | 2018-12-15 20:16 | CT ---
CT ABDOMEN AND PELVIS WITH CONTRAST: HISTORY: Fever. E. coli. History of hysterectomy. COMPARISON: Multiple prior CT examinations, including 10/26/2018, 10/17/2018, and 10/05/2018 studies. FINDINGS: ABDOMEN: There are tiny bilateral pleural effusions noted with subsegmental atelectatic change. The liver and spleen show no focal findings. The liver measures 21 cm in length. The pancreas regio n is unremarkable. The gallbladder is mildly distended. Right and left adrenal glands are normal in appearance. There is cortical scarring involving the rig ht kidney, with some hypertrophy to the left kidney. This appearance is stable as compared to the pr ior exam. Small periaortic nodes are also unchanged. A moderate amount of stool is seen within the colon. There is scar from a previous midline surgery. On the right side, there is a right ileal conduit present. The ileal loop leading into this appears to be narrowed, which is probably chronic in nature, with an ileal loop pouch present. Some dilatati on of some of the small bowel loops extend into the left side of the pelvis. This is a fairly simila r appearance to what has been seen on the prior examinations. The dilatation may be partially explai sirisha by the narrowing to the portion of the ileum extending into the right-sided ostomy. On the left side, there is a left-sided colostomy present. There is a parastomal hernia with herniat ion of small bowel but no signs of obstruction associated with this. Slight dilatation, related to a n anastomotic suture line around one of the small bowel loops, also stable. No acute process. PELVIS: Due to the pelvic exoneration, the cecum is now very low-lying. IMPRESSION: 1. Tiny bilateral effusions. 2. Right-sided ileostomy with what appears to be some narrowing of the ileal conduit as it enters in to the ostomy, similar to the previous examination. Fluid-filled dilatation of some of the small bow el extending into the left abdomen appears to be related to an ileal loop and is probably secondary t o all these changes. 3. Left-sided colostomy. There is a parastomal hernia with herniation of a small bowel loop, but no signs of obstruction. 4. Also, in the left lower quadrant, there is a stable appearance to slight dilatation of a small carine wel loop associated with an anastomotic suture line. 5. The patient is status post pelvic exoneration, also noted on the prior studies. 6. Stable osteochondroma of the left iliac bone. 7. Cortical scarring involving the right kidney, with some compensatory hypertrophy of the left kidn ey. 8. Overall, fairly stable appearance to the abdomen and pelvis. POS: [facility]
[2018-12-15 20:41] LABS: BHCG - Serum Negative (NEGATIVE); Pregs Control Background? CLEAR/WHITE (CLR/WHITE); Pregs Control Bar Appear? YES (CONTROL BAR)
[2018-12-16 06:37] LABS: #Eosinphils 0.3 thou/uL (0.0-0.7); #Lymphocytes 2.2 thou/uL (1.20-3.40); #Monocytes 1.5 thou/uL (0.11-0.59); #Neutrophils 6.9 thou/uL (1.40-6.50); %Basophils 0.4 % (0.0-1.0); %Eosinophils 2.4 % (0.0-10.0); %Lymphocytes 19.9 % (21.0-51.0); %Monocytes 13.6 % (0.0-10.0); %Neutrophils 63.7 % (42.0-75.0); Hemoglobin 10.1 g/dL (12.0-16.0); Mean Corpuscular HGB CONC 32.1 g/dL (32.0-36.0); Mean Corpuscular Hemoglobin 29.2 pg (27.0-31.0); Mean Corpuscular Volume 90.8 fL (78.0-98.0); Mean Platelet Volume 7.5 fL (7.4-10.4); Platelet Count 295 thou/uL (130-400); RBC Distribution Width 13.5 % (11.5-14.5); Red Blood Cell (RBC) Count 3.47 mill/uL (4.20-5.40); White Blood Cell (WBC) Count 10.9 thou/uL (4.8-10.8)
[2018-12-16 06:55] LABS: Anion Gap 14 mmol/L (10-20); BUN (Urea Nitrogen) 9 mg/dL (7.0-18.7); Calc. Creatinine Clearance 126 mL/min (70-130); Carbon Dioxide 19 mmol/L (22-29); Chloride 113 mmol/L (98-107); Estimated GFR-MDRD Greater than 90; Glucose 96 mg/dL (70-105); Potassium 3.8 mmol/L (3.5-5.1); Sodium 142 mmol/L (136-145)
[2018-12-16] MEDS: Enoxaparin Sodium 40 MG/0.4 ML SYRINGE SC SCH (08:12)
[2018-12-16] MEDS: Diabetic Tussin 200 MG/10 ML UDCUP PO PRN ×3 (08:13→21:17)
[2018-12-16] MEDS: Famotidine 20 MG TAB PO SCH ×2 (08:13→20:38)
[2018-12-16] MEDS: Acetaminophen 500 MG TAB PO PRN ×2 (08:14→20:38)
[2018-12-16] MEDS: Vancomycin HCl 1 GM in Premix Bag 1 BAG IVPB SCH (11:14)
[2018-12-16] MEDS: Sodium Chloride 0.9% 1,000 ML IV SCH ×2 (11:14→23:16)
[2018-12-16] MEDS: cefTRIAXone\\ROCEPHIN 2 GM in Sodium Chloride 0.9% 100 ML IVPB SCH (12:41)
--- NOTE | 2018-12-16 12:53 | PDOC.PN ---
- Subjective Encounter Start Date: 12/16/18 Encounter Start Time: 12:51 Subjective: better but on and off fever -: no abd pain - Objective MAR Reviewed: Yes Vital Signs & Weight: Vital Signs (12 hours) Temp Pulse Resp BP Pulse Ox 12/16/18 11:40 98.0 F 82 18 115/69 98 12/16/18 08:08 97.8 F 87 16 127/66 100 12/16/18 08:00 100 12/16/18 03:42 97.8 F 79 17 122/70 98 Weight Weight 151 lb I&O: 12/15/18 12/16/18 12/17/18 06:59 06:59 06:59 Intake Total 3843 1450 Output Total 3725 1550 Balance 118 -100 Result Diagrams: 12/16/18 06:02 12/16/18 06:02 Additional Labs: Microbiology 12/13/18 12:41 Urine voided Urine Culture - Final Escherichia coli Gram Negative Angel#2 12/13/18 11:52 Venous blood - Left Arm Blood Culture - Preliminary NO GROWTH AT 48 HOURS 12/13/18 11:20 Venous blood - Right Arm Blood Culture - Preliminary NO GROWTH AT 48 HOURS Phys Exam - Physical Examination Constitutional: NAD HEENT: PERRLA, moist MMs, sclera anicteric, oral pharynx no lesions Neck: no nodes, no JVD, supple, full ROM Respiratory: no wheezing, no rales, no rhonchi Cardiovascular: RRR, no significant murmur Gastrointestinal: soft, non-tender, no distention, positive bowel sounds Musculoskeletal: no edema, pulses present Psychiatric: normal affect, A&O x 3 Dx/Plan (1) Sepsis Code(s): A41.9 - SEPSIS, UNSPECIFIED ORGANISM Status: Acute (2) UTI (urinary tract infection) Status: Acute Comment: E.Coli (3) History of urostomy Code(s): Z98.890 - OTHER SPECIFIED POSTPROCEDURAL STATES Status: Chronic (4) Colostomy care Code(s): Z43.3 - ENCOUNTER FOR ATTENTION TO COLOSTOMY Status: Chronic (5) Chronic abdominal wound infection Code(s): S31.109A - UNSP OPN WND ABD WALL, UNSP Q W/O PENET PERIT CAV, INIT; L08.9 - LOCAL INFECTION OF THE SKIN AND SUBCUTANEOUS TISSUE, UNSP Status: Chronic - Plan DVT proph w/SCDs CT A/P look OK. no acute changes.cont ABx -: clinically better.WBC trending dwon. ID resc requested -: ban [place] tomorrow with PO ABx if continues to improve -: am labs * . Review of Systems - Review of Systems Constitutional: fever, weakness. negative: chills, sweats, malaise, other ENT: negative: Ear Pain, Ear Discharge, Nose Pain, Nose Discharge, Nose Congestion, Mouth Pain, Mouth Swelling, Throat Pain, Throat Swelling, Other Respiratory: negative: Cough, Dry, Shortness of Breath, Hemoptysis, SOB with Excertion, Pleuritic Pain, Sputum, Wheezing Cardiovascular: negative: chest pain, palpitations, orthopnea, paroxysmal nocturnal dyspnea, edema, light headedness, other Gastrointestinal: negative: Nausea, Vomiting, Abdominal Pain, Diarrhea, Constipation, Melena, Hematochezia, Other Genitourinary: negative: Dysuria, Frequency, Incontinence, Hematuria, Retention , Other Neurological: negative: Weakness, Numbness, Incoordination, Change in Speech, Confusion, Seizures, Other - Medications/Allergies Allergies/Adverse Reactions: Allergies Allergy/AdvReac Type Severity Reaction Status Date / Time No Known Drug Allergies Allergy Verified 10/07/18 17:29 Medications: Current Medications Acetaminophen (Tylenol) 1,000 mg PO Q6H PRN PRN Reason: Mild Pain (1-3) Last Admin: 12/16/18 08:14 Dose: 1,000 mg Acetaminophen (Tylenol) 650 mg PO Q4H PRN PRN Reason: Headache/Fever/Mild Pain (1-3) Last Admin: 12/15/18 23:08 Dose: 650 mg Albuterol Sulfate (Proventil Hfa) 1 puff INH QIDPRN PRN PRN Reason: bronchospasm Last Admin: 12/14/18 21:05 Dose: 1 puff Albuterol/Ipratropium (Duoneb) 3 ml NEB [id number] PRN PRN Reason: SOB &/or Wheezing Last Admin: 12/15/18 17:01 Dose: 3 ml Benzonatate (Tessalon) 100 mg PO Q6H PRN PRN Reason: Cough Last Admin: 12/15/18 02:07 Dose: 100 mg Bisacodyl (Dulcolax) 10 mg PO DAILYPRN PRN PRN Reason: Constipation Clonidine (Catapres) 0.1 mg PO Q4H PRN PRN Reason: SBP >160 ____ Enoxaparin Sodium (Lovenox) 40 mg SC 0900 [facility] Last Admin: 12/16/18 08:12 Dose: 40 mg Famotidine (Pepcid) 20 mg PO BID [facility] Last Admin: 12/16/18 08:13 Dose: 20 mg Guaifenesin (Robitussin Sf) 200 mg PO Q4H PRN PRN Reason: Cough Last Admin: 12/16/18 08:13 Dose: 200 mg Hydralazine HCl (Apresoline) 10 mg SLOW IVP Q4H PRN PRN Reason: SBP > 180 and HR < 70 Ceftriaxone Sodium 2 gm/ (Sodium Chloride) 100 mls @ 200 mls/hr IVPB 1200 [facility] Last Admin: 12/16/18 12:41 Dose: 100 mls Vancomycin HCl 1 gm/ Device 200 mls @ 200 mls/hr IVPB 1100,2300 [facility] Last Admin: 12/16/18 11:14 Dose: 200 mls Levofloxacin 500 mg/ Device 100 mls @ 100 mls/hr IVPB Q24HR [facility] Last Admin: 12/15/18 16:55 Dose: 100 mls Sodium Chloride (Normal Saline 0.9%) 1,000 mls @ 75 mls/hr IV .[id number] [facility] Last Admin: 12/16/18 11:14 Dose: 1,000 mls Ibuprofen (Motrin) 200 mg PO Q8H PRN PRN Reason: fever Last Admin: 12/15/18 20:12 Dose: 200 mg Lactulose (Lactulose) 10 gm PO BIDPRN PRN PRN Reason: constipation Ondansetron HCl (Zofran) 4 mg IVP Q6H PRN PRN Reason: Nausea/Vomiting Senna/Docusate Sodium (Senokot S) 2 tab PO BID PRN PRN Reason: Constipation Sodium Chloride (Flush - Normal Saline) 10 ml IVF Q12HR [facility] Last Admin: 12/16/18 08:13 Dose: 10 ml Sodium Chloride (Flush - Normal Saline) 10 ml IVF PRN PRN PRN Reason: Saline Flush
--- NOTE | 2018-12-16 16:18 | CON ---
DATE OF CONSULTATION: 12/16/2018 REASON FOR CONSULTATION: Fever and chills. HISTORY OF PRESENT ILLNESS: A 43-year-old who has a history of pelvic exenteration for management of a sarcoma which had been diagnosed during childhood. Recently , she had problems with the colostomy site and Dr. Hurd revised the area, had to redo the colostomy and resect some segments of the small bowel and large bowel. She did well after the procedure and now the ostomy is working properly. Two days before admission, she developed general malaise with fever and flank pain on the right side with vomiting. On arrival, she had a temperature of 100.6 and she was tachycardic. BP 85/68. The patient was given broad-spectrum antimicrobial therapy and IV fluids. White cell count is elevated. She was treated with Rocephin and vancomycin and she is currently feeling better. She denies any headaches. No visual symptoms, sore throat, odynophagia, or dysphagia. No back pain. No cough or sputum production. No chest pain. Still has a flank pain in the right side, which is pretty intense. No joint symptoms. No skin disorder. 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 She has had vaginal reconstruction surgeries and hysterectomy at the age of 7 months. She has had breast augmentation. She also had a recent procedures by Dr. Hurd with a revision of her colostomy, which went without major complications. ALLERGIES: NONE. FAMILY HISTORY: Noncontributory. SOCIAL HISTORY: She used to work as an accountant budget and then she got into trouble with and [facility]. Never smoker. No alcoholic beverage use. No drug use. CURRENT MEDICATIONS: Include: 1. Tylenol. 2. Proventil. 3. DuoNeb. 4. Tessalon. 5. Dulcolax. 6. Rocephin. 7. Catapres. 8. Lovenox. 9. Pepcid. 10. Apresoline. 11. Motrin. 12. Lactulose. 13. Levofloxacin. 14. Zofran. 15. Vancomycin. PHYSICAL EXAMINATION: VITAL SIGNS: T-max 102.5 yesterday at 4:00 p.m. and blood pressure 115/69, pulse 82, respirations 18, O2 saturation 98%. GENERAL: Ms. Thornton is awake and alert. No distress. SKIN: Shows the left-sided colostomy with normal appearance and the right-sided ileal conduit with normal appearance as well. She has a peripheral IV access and no other areas of skin breakdown noted. HEENT: No lymphadenopathy. Ocular movements conjugate. Sclerae white. Pupils are equal. Oral cavity moist with numerous teeth in very good shape. NECK: Supple. No jugular venous distention. No carotid bruits. No thyromegaly. LUNGS: Symmetric air entry. S1, S2. Regular rate. No S3 or S4. ABDOMEN: Soft with mild tenderness in the right flank, moderate tenderness in the right CVA area. EXTREMITIES: No joint inflammatory activity. Pulses 1+ in dorsalis pedis. Moves all extremities equally. Cognitive function appears to be intact. LABORATORY DATA: White cell count down from 26 to 10.9, hemoglobin 10.1, platelets 295, with 63% neutrophils. Sodium 142, creatinine 0.63. Liver profile normal. Albumin 3.9. Urinalysis was abnormal with greater than 50 wbc's. Microbiology with Escherichia coli and gram-negative liya. The Escherichia coli has a broad susceptibility profile except for Bactrim. The patient had an abdomen and pelvis CT and that showed small bilateral pleural effusions, right-sided ileostomy which is part of the ileal conduit. There is some fluid-filled dilatation of some of the small bowel extending into the left abdomen. 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 ASSESSMENT: 1. Pelvic exenteration for treatment of pelvic sarcoma in childhood. 2. Ileal conduit and recent revision of left-sided colostomy. 3. Multiple episodes of urinary tract infection in the past including episodes of nephrolithiasis. 4. Fever, chills, flank pain, abnormal urinalysis with the organisms described in the urine cultures. Negative blood cultures thus far. DISCUSSION: The most likely scenario is pyelonephritis recurrence. Patients with ileal conduit will sometimes have episodes of pyelonephritis, they may develop urological complications related to stenosis at the anastomosis between the ureters and the ileal loop used for the assembly of the neobladder. The patient at this point does not have any evidence to suggest obstruction per CT scan. Further evaluation by urologist might be recommended in the outpatient setting and in her case, should be able to continue quinolone alone, discontinue vancomycin and I have asked the laboratory to test the 2nd gram-negative liya to make sure it is susceptible to the quinolone as well. Duration of therapy will be approximately 2 weeks. Other areas of involvement are not apparent at this point in time. Job ID: [id number] [facility]
[2018-12-16] MEDS ORDERED: Rocuronium Bromide 50 MG/5 ML VIAL ONE (18:10)
[2018-12-16] MEDS ORDERED: Fentanyl 100 MCG/2 ML VIAL ONE (18:10)
[2018-12-17] MEDS: Sodium Chloride 0.9% 1,000 ML IV SCH ×2 (04:03→17:57)
[2018-12-17] MEDS: Diabetic Tussin 200 MG/10 ML UDCUP PO PRN ×3 (04:05→21:22)
[2018-12-17 05:10] LABS: Anion Gap 14 mmol/L (10-20); BUN (Urea Nitrogen) 7 mg/dL (7.0-18.7); Calc. Creatinine Clearance 130 mL/min (70-130); Carbon Dioxide 18 mmol/L (22-29); Chloride 112 mmol/L (98-107); Estimated GFR-MDRD Greater than 90; Glucose 96 mg/dL (70-105); Potassium 3.7 mmol/L (3.5-5.1); Sodium 140 mmol/L (136-145)
[2018-12-17 05:28] LABS: Band 6 % (5-11); Eosinophils 4 % (0-10); Hemoglobin 10.5 g/dL (12.0-16.0); Lymphocytes 22 % (21-51); MDiff Complete? YES; Mean Corpuscular HGB CONC 32.5 g/dL (32.0-36.0); Mean Corpuscular Hemoglobin 29.1 pg (27.0-31.0); Mean Corpuscular Volume 89.7 fL (78.0-98.0); Mean Platelet Volume 7.2 fL (7.4-10.4); Monocytes 15 % (0-10); Neutrophil 53 % (42-75); Platelet Count 300 thou/uL (130-400); Platelet Morphology Comment Appears Adequate; RBC Distribution Width 13.5 % (11.5-14.5); Red Blood Cell (RBC) Count 3.61 mill/uL (4.20-5.40); White Blood Cell (WBC) Count 9.4 thou/uL (4.8-10.8)
[2018-12-17] MEDS: Famotidine 20 MG TAB PO SCH ×2 (08:28→21:22)
[2018-12-17] MEDS: Enoxaparin Sodium 40 MG/0.4 ML SYRINGE SC SCH (08:28)
[2018-12-17] MEDS: cefTRIAXone\\ROCEPHIN 2 GM in Sodium Chloride 0.9% 100 ML IVPB SCH (12:43)
--- NOTE | 2018-12-17 14:15 | PDOC.PN ---
- Subjective Encounter Start Date: 12/17/18 Encounter Start Time: 14:13 Subjective: feels better but still had low grade fever last night and mild cough persis - Objective MAR Reviewed: Yes Vital Signs & Weight: Vital Signs (12 hours) Temp Pulse Resp BP Pulse Ox 12/17/18 12:15 98.1 F 78 14 115/74 98 12/17/18 08:00 97.9 F 109 H 18 122/76 94 L 12/17/18 04:00 98.1 F 74 18 123/72 98 Weight Weight 151 lb I&O: 12/16/18 12/17/18 12/18/18 06:59 06:59 06:59 Intake Total 1450 2325 Output Total 1550 1100 Balance -100 1225 Result Diagrams: 12/17/18 04:33 12/17/18 04:33 Additional Labs: Microbiology 12/13/18 12:41 Urine voided Urine Culture - Preliminary Escherichia coli Gram Negative Angel#2 12/13/18 11:52 Venous blood - Left Arm Blood Culture - Preliminary NO GROWTH AT 48 HOURS 12/13/18 11:20 Venous blood - Right Arm Blood Culture - Preliminary NO GROWTH AT 48 HOURS Laboratory Tests 12/13/18 12/14/18 12/15/18 11:20 04:59 04:31 WBC 26.0 H 21.1 H 16.9 H Neutrophils % (Manual) 65 85 H 62 Band Neuts % (Manual) 20 H 6 23 H 12/16/18 12/17/18 06:02 04:33 WBC 10.9 H 9.4 Neutrophils % (Manual) 53 Band Neuts % (Manual) 6 Phys Exam - Physical Examination Constitutional: NAD HEENT: PERRLA, moist MMs, sclera anicteric, oral pharynx no lesions Neck: no nodes, no JVD, supple, full ROM Respiratory: no wheezing, no rales, no rhonchi, clear to auscultation bilateral Cardiovascular: RRR, no significant murmur, no rub Gastrointestinal: soft, non-tender, no distention, positive bowel sounds Musculoskeletal: no edema, pulses present Neurological: non-focal, normal sensation, moves all 4 limbs Psychiatric: normal affect, A&O x 3 Skin: no rash Dx/Plan (1) Sepsis Code(s): A41.9 - SEPSIS, UNSPECIFIED ORGANISM Status: Acute (2) UTI (urinary tract infection) Status: Acute Comment: E.Coli (3) History of urostomy Code(s): Z98.890 - OTHER SPECIFIED POSTPROCEDURAL STATES Status: Chronic (4) Colostomy care Code(s): Z43.3 - ENCOUNTER FOR ATTENTION TO COLOSTOMY Status: Chronic (5) Chronic abdominal wound infection Code(s): S31.109A - UNSP OPN WND ABD WALL, UNSP Q W/O PENET PERIT CAV, INIT; L08.9 - LOCAL INFECTION OF THE SKIN AND SUBCUTANEOUS TISSUE, UNSP Status: Chronic - Plan continue antibiotics, PT/OT, incentive spirometry, out of bed/ambulate, DVT proph w/SCDs cont levaquine as clinical improvement w that -: cont rocephin -: wait till final urine Cx results ar eback.clinically better * . Review of Systems - Review of Systems Constitutional: weakness, malaise. negative: fever, chills, sweats, other ENT: negative: Ear Pain, Ear Discharge, Nose Pain, Nose Discharge, Nose Congestion, Mouth Pain, Mouth Swelling, Throat Pain, Throat Swelling, Other Respiratory: negative: Cough, Dry, Shortness of Breath, Hemoptysis, SOB with Excertion, Pleuritic Pain, Sputum, Wheezing Cardiovascular: negative: chest pain, palpitations, orthopnea, paroxysmal nocturnal dyspnea, edema, light headedness, other Gastrointestinal: negative: Nausea, Vomiting, Abdominal Pain, Diarrhea, Constipation, Melena, Hematochezia, Other Genitourinary: negative: Dysuria, Frequency, Incontinence, Hematuria, Retention , Other Musculoskeletal: negative: Neck Pain, Shoulder Pain, Arm Pain, Back Pain, Hand Pain, Leg Pain, Foot Pain, Other Neurological: negative: Weakness, Numbness, Incoordination, Change in Speech, Confusion, Seizures, Other - Medications/Allergies Allergies/Adverse Reactions: Allergies Allergy/AdvReac Type Severity Reaction Status Date / Time No Known Drug Allergies Allergy Verified 10/07/18 17:29 Medications: Current Medications Acetaminophen (Tylenol) 1,000 mg PO Q6H PRN PRN Reason: Mild Pain (1-3) Last Admin: 12/16/18 20:38 Dose: 1,000 mg Acetaminophen (Tylenol) 650 mg PO Q4H PRN PRN Reason: Headache/Fever/Mild Pain (1-3) Last Admin: 12/15/18 23:08 Dose: 650 mg Albuterol Sulfate (Proventil Hfa) 1 puff INH QIDPRN PRN PRN Reason: bronchospasm Last Admin: 12/14/18 21:05 Dose: 1 puff Albuterol/Ipratropium (Duoneb) 3 ml NEB [id number] PRN PRN Reason: SOB &/or Wheezing Last Admin: 12/15/18 17:01 Dose: 3 ml Benzonatate (Tessalon) 100 mg PO Q6H PRN PRN Reason: Cough Last Admin: 12/15/18 02:07 Dose: 100 mg Bisacodyl (Dulcolax) 10 mg PO DAILYPRN PRN PRN Reason: Constipation Clonidine (Catapres) 0.1 mg PO Q4H PRN PRN Reason: SBP >160 ____ Enoxaparin Sodium (Lovenox) 40 mg SC 0900 [facility] Last Admin: 12/17/18 08:28 Dose: 40 mg Famotidine (Pepcid) 20 mg PO BID [facility] Last Admin: 12/17/18 08:28 Dose: 20 mg Guaifenesin (Robitussin Sf) 200 mg PO Q4H PRN PRN Reason: Cough Last Admin: 12/17/18 08:28 Dose: 200 mg Hydralazine HCl (Apresoline) 10 mg SLOW IVP Q4H PRN PRN Reason: SBP > 180 and HR < 70 Ceftriaxone Sodium 2 gm/ (Sodium Chloride) 100 mls @ 200 mls/hr IVPB 1200 [facility] Last Admin: 12/17/18 12:43 Dose: 100 mls Levofloxacin 500 mg/ Device 100 mls @ 100 mls/hr IVPB Q24HR [facility] Last Admin: 12/16/18 17:14 Dose: 100 mls Sodium Chloride (Normal Saline 0.9%) 1,000 mls @ 75 mls/hr IV .[id number] [facility] Last Admin: 12/17/18 04:03 Dose: 1,000 mls Ibuprofen (Motrin) 200 mg PO Q8H PRN PRN Reason: fever Last Admin: 12/15/18 20:12 Dose: 200 mg Lactulose (Lactulose) 10 gm PO BIDPRN PRN PRN Reason: constipation Ondansetron HCl (Zofran) 4 mg IVP Q6H PRN PRN Reason: Nausea/Vomiting Senna/Docusate Sodium (Senokot S) 2 tab PO BID PRN PRN Reason: Constipation Sodium Chloride (Flush - Normal Saline) 10 ml IVF Q12HR [facility] Last Admin: 12/17/18 12:43 Dose: Not Given Sodium Chloride (Flush - Normal Saline) 10 ml IVF PRN PRN PRN Reason: Saline Flush
[2018-12-18 04:29] LABS: #Eosinphils 0.3 thou/uL (0.0-0.7); #Lymphocytes 2.6 thou/uL (1.20-3.40); #Monocytes 1.3 thou/uL (0.11-0.59); #Neutrophils 6.4 thou/uL (1.40-6.50); %Basophils 0.4 % (0.0-1.0); %Eosinophils 3.2 % (0.0-10.0); %Lymphocytes 24.5 % (21.0-51.0); %Neutrophils 59.9 % (42.0-75.0); Hemoglobin 10.8 g/dL (12.0-16.0); Mean Corpuscular HGB CONC 32.9 g/dL (32.0-36.0); Mean Corpuscular Hemoglobin 29.4 pg (27.0-31.0); Mean Corpuscular Volume 89.4 fL (78.0-98.0); Mean Platelet Volume 7.1 fL (7.4-10.4); Platelet Count 374 thou/uL (130-400); RBC Distribution Width 13.4 % (11.5-14.5); Red Blood Cell (RBC) Count 3.67 mill/uL (4.20-5.40); White Blood Cell (WBC) Count 10.7 thou/uL (4.8-10.8)
[2018-12-18 04:50] LABS: Anion Gap 14 mmol/L (10-20); BUN (Urea Nitrogen) 12 mg/dL (7.0-18.7); Calc. Creatinine Clearance 134 mL/min (70-130); Carbon Dioxide 20 mmol/L (22-29); Chloride 109 mmol/L (98-107); Estimated GFR-MDRD Greater than 90; Glucose 95 mg/dL (70-105); Potassium 3.8 mmol/L (3.5-5.1); Sodium 139 mmol/L (136-145)
[2018-12-18] MEDS: Sodium Chloride 0.9% 1,000 ML IV SCH (08:26)
[2018-12-18] MEDS: Famotidine 20 MG TAB PO SCH (08:27)
[2018-12-18] MEDS: Enoxaparin Sodium 40 MG/0.4 ML SYRINGE SC SCH (08:28)
[2018-12-18 12:03] VITALS: BP 119/79; TEMP 98
[2018-12-18] MEDS: cefTRIAXone\\ROCEPHIN 2 GM in Sodium Chloride 0.9% 100 ML IVPB SCH (12:03)
--- NOTE | 2018-12-18 15:21 | DIS ---
DATE OF ADMISSION: 12/13/2018 DATE OF DISCHARGE: 12/18/2018 CONDITION: At the time of discharge, stable and improved. PRIMARY DISCHARGE DIAGNOSES: 1. Urinary tract infection due to the Escherichia coli. 2. Sepsis secondary to urinary tract infection. SECONDARY DISCHARGE DIAGNOSES: 1. 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 2. Multiple vaginal reconstruction surgery history. 3. Colostomy with recent hernia obstruction status post repair by Dr. Hurd. DISCHARGE MEDICATIONS: 1. Levofloxacin 500 mg p.o. daily for 7 more days. 2. Florastor 250 mg daily for 14 days. 3. Resume home medication of lactulose 10 mg p.o. b.i.d. p.r.n. INHOUSE CONSULTATION: Infectious Disease, Dr. Chavez. PROCEDURES DONE IN HOSPITAL: CT scan of the abdomen and pelvis. This shows stable postoperative changes without any acute changes. She has fairly stable appearance to the abdomen and pelvis. PRIMARY CARE PHYSICIAN: None. The patient is incarcerated at this time. HISTORY OF PRESENTING ILLNESS: Ms. Thornton is a very pleasant 43-year-old female with extensive abdominal surgeries as outlined above, who has a urostomy on the right side of the abdomen as well as a colostomy in the left side and who recently underwent incisional hernia repair surgery by Dr. Hurd, who came to the emergency room with feeling poorly with fever, chills, flank pain on the right side, and vomiting. She was found to be febrile and tachycardic and hypotensive in the emergency room with a urine suggestive of UTI. She also had leukocytosis with left shift. She was diagnosed with sepsis likely secondary to UTI in the emergency room and was admitted to the hospital. Please see admission history and physical for further details. HOSPITAL COURSE: The patient had slow improvement in her symptoms. Her urine culture did come back positive for E. coli, which was more than 100,000 colony-forming urine per mL as well as Acinetobacter which was less than 10,000. Both of the organisms were quite sensitive. The patient had slow improvement with reoccurrence of fever on and off, even though her leukocytosis continued to improve. Because of her complicated abdominal history, Dr. Chavez was consulted and a CT scan of the abdomen and pelvis was done. CT scan showed stable appearance and Dr. Chavez recommended antibiotics until the final culture results were available. The patient as of this morning has been afebrile for more than 24 hours and her leukocytosis and neutrophilia has resolved. She is feeling back to her baseline. She has no new complaints and the results of the urine culture are available. She will be discharged on oral levofloxacin back to care home at this time. I have seen and examined the patient prior to discharge. She is still sleeping comfortably in bed and easily woken up. Chest is clear to auscultation bilaterally. Rate and rhythm is regular. Abdomen is soft, nontender, nondistended. Colostomy bag has scant brown formed stools. Urostomy has clear urine. Her midline abdominal scar has a dried wound well healing. Vital signs, temperature 98, heart rate 67, respirations 16, saturating 96% on room air, blood pressure 112/74. No acute distress. TOTAL TIME SPENT: 32 minutes. Job ID: [id number]
== END 2018-12-18 13:50 | DRG 871 ==
LOC: ERS 10:53 → ERHOLD 13:49 → 2NO 15:52 → SURG A 12-16 11:30
PROVIDERS: ADMIT Internal Medicine; ATTEND Internal Medicine
DX: A41.9 Sepsis, unspecified organism (principal); R65.21 Severe sepsis with septic shock; N39.0 Urinary tract infection, site not specified; E87.1 Hypo-osmolality and hyponatremia; E86.0 Dehydration; B96.20 Unspecified Escherichia coli [E. coli] as the cause of diseases classified elsewhere; Z98.890 Other specified postprocedural states; Z93.6 Other artificial openings of urinary tract status; Z93.3 Colostomy status; Z85.53 Personal history of malignant neoplasm of renal pelvis; Z79.899 Other long term (current) drug therapy; Z87.442 Personal history of urinary calculi
CPT/HCPCS: 36415; 71045; 74177; 80048; 80053; 80202; 81003; 81015; 83605; 84703; 85025; 87040; 87077; 87086; 87186; 94640; 94664; 96361; 96365; 96375; J0696; J1650; J1956; J3010; J3370; J7050; Q9967